=== PATIENT | female | born 1985 | race Caucasian/White ===

== ENCOUNTER → 2020-03-09 11:10 | Outpatient (BNVA) | payer OTHER, SELFPAY | PROVIDERS: Family Provider Nurse Practitioner Family; Visit Provider Obstetrics & Gynecology | DX: Z32.01 Encounter for pregnancy test, result positive (principal) | CPT/HCPCS: 81025 ==

== ENCOUNTER → 2020-03-10 13:15 | Outpatient (BNVA) | payer OTHER, SELFPAY | PROVIDERS: Family Provider Nurse Practitioner Family; Visit Provider Obstetrics & Gynecology | DX: O26.859 Spotting complicating pregnancy, unspecified trimester (principal) | CPT/HCPCS: 84702 ==

== ENCOUNTER → 2020-03-20 10:20 | Outpatient (BNVA) | payer OTHER, SELFPAY | PROVIDERS: Family Provider Nurse Practitioner Family; Visit Provider Obstetrics & Gynecology | DX: O20.0 Threatened abortion (principal) | CPT/HCPCS: 76817 ==

== ENCOUNTER → 2020-04-10 14:06 | Outpatient (BNVA) | payer OTHER, SELFPAY | PROVIDERS: Family Provider Nurse Practitioner Family; Visit Provider Obstetrics & Gynecology | DX: Z34.80 Encounter for supervision of other normal pregnancy, unspecified trimester | CPT/HCPCS: 80053; 80307; 84315; 85027; 86592; 86762; 86803; 86850; 86900; 87340; 87806 ==

== ENCOUNTER → 2020-04-24 10:16 | Outpatient (BNVA) | payer OTHER, SELFPAY | PROVIDERS: Family Provider Nurse Practitioner Family; Visit Provider Obstetrics & Gynecology | DX: Z34.81 Encounter for supervision of other normal pregnancy, first trimester (principal) | CPT/HCPCS: 84315; 87491; 87591; 88175 ==

== ENCOUNTER → 2020-05-18 13:19 | Outpatient (BNVA) | payer OTHER, BC, SELFPAY | PROVIDERS: Family Provider Nurse Practitioner Family; Visit Provider Obstetrics & Gynecology | DX: R30.0 Dysuria (principal) | CPT/HCPCS: 80053; 81000; 87077; 87086; 87184 ==

== ENCOUNTER → 2020-07-01 13:06 | Outpatient (BNVA) | payer OTHER, BC, SELFPAY | PROVIDERS: Family Provider Nurse Practitioner Family; Visit Provider Obstetrics & Gynecology | DX: Z34.92 Encounter for supervision of normal pregnancy, unspecified, second trimester (principal); Z3A.22 22 weeks gestation of pregnancy; O32.1XX0 Maternal care for breech presentation, not applicable or unspecified | CPT/HCPCS: 76805 ==

== ENCOUNTER → 2020-07-03 15:48 | Outpatient (BNVA) | payer OTHER, BC, SELFPAY | PROVIDERS: Family Provider Nurse Practitioner Family; Visit Provider Obstetrics & Gynecology | DX: O99.891 Other specified diseases and conditions complicating pregnancy (principal); R82.71 Bacteriuria; B37.3 Candidiasis of vulva and vagina | CPT/HCPCS: 84315; 87086 ==

== ENCOUNTER → 2020-08-14 14:48 | Outpatient (BNVA) | payer OTHER, BC, SELFPAY | PROVIDERS: Family Provider Nurse Practitioner Family; Visit Provider Obstetrics & Gynecology | DX: Z34.90 Encounter for supervision of normal pregnancy, unspecified, unspecified trimester (principal); Z34.82 Encounter for supervision of other normal pregnancy, second trimester; Z34.80 Encounter for supervision of other normal pregnancy, unspecified trimester | CPT/HCPCS: 82950; 84315; 85027 ==

== ENCOUNTER → 2020-08-21 08:25 | Outpatient (BNVA) | payer OTHER, BC, SELFPAY | PROVIDERS: Family Provider Nurse Practitioner Family; Visit Provider Obstetrics & Gynecology | DX: R73.09 Other abnormal glucose (principal) | CPT/HCPCS: 82951; 82952 ==

== ENCOUNTER → 2020-10-09 08:56 | Outpatient (BNVA) | payer OTHER, BC, SELFPAY | PROVIDERS: Family Provider Nurse Practitioner Family; Visit Provider Obstetrics & Gynecology | DX: Z34.80 Encounter for supervision of other normal pregnancy, unspecified trimester (principal); Z34.83 Encounter for supervision of other normal pregnancy, third trimester | CPT/HCPCS: 84315; 87081 ==

== ENCOUNTER 2020-10-24 15:32 | Outpatient (CLI) | payer OTHER, BC, SELFPAY ==
[2020-10-24 16:49] LABS: Urine Total Protein 24 Hour 11.9 mg/dL (0-150)
[2020-10-24 16:50] LABS: Total Protein 24 Hour Urine 199.3 mg/24HR (0-150); Total Volume, Urine 1675 mL
== END 2020-10-24 15:33 | disposition home or self-care (01) ==
LOC: LAB 15:34
PROVIDERS: Family Provider Nurse Practitioner Family; Visit Provider Obstetrics & Gynecology
DX: O16.3 Unspecified maternal hypertension, third trimester (principal)
CPT/HCPCS: 84156

== ENCOUNTER 2020-10-26 13:29 | Inpatient (IN) | payer OTHER, BC, SELFPAY ==
[2020-10-26] VITALS (44 sets, daily range): BP systolic 125–173; BP diastolic 66–120; PULSE 60–114; RESP 16–17; TEMP 36.3–36.4; BMI 31.6
[2020-10-26 14:37] LABS: Basophils % 0.2 %; Eosinophils # 0.4 10^3/uL (0.0-0.8); Hematocrit 37.3 % (37.0-47.0); Hemoglobin 12.2 g/dL (11.5-15.3); Lymphocytes # 1.6 10^3/uL (0.8-4.8); Lymphocytes % 9.1 %; Mean Corpuscular HGB Conc 32.7 g/dL (30.0-36.0); Mean Corpuscular Hemoglobin 29.2 pg (28.0-34.0); Mean Corpuscular Volume 89.2 fL (81-99); Mean Platelet Volume 12.7 fL (7.4-10.4); Monocytes # 0.8 10^3/uL (0.2-0.9); Monocytes % 4.3 %; Neutrophils # 14.75 10^3/uL (1.8-7.7); Neutrophils % 83.6 %; Nucleated Red Blood Cells % 0 %; Platelet Count 271 10^3/cmm (130-400); Red Blood Count 4.18 10^6/uL (4.1-5.3); Red Cell Distribution Width 15.2 % (12.1-15.1); White Blood Count 17.7 10^3/uL (4.0-10.0)
[2020-10-26 14:48] LABS: Blood Urine 3+ (Negative); Glucose Urine UA Norm (Normal); Ketones Urine 2+ (Negative); Protein Urine Neg (Negative); Urine Appearance Hazy (CLEAR); Urine Color Yellow (Yellow); pH Urine 5 (5-7)
[2020-10-26 14:49] LABS: Add Urine Microscopic? YES; Bilirubin Urine Neg (Negative); Leukocyte Esterase Urine 2+ (Negative); Nitrate Urine Negative (Negative); Urobilinogen Urine Norm (Negative)
[2020-10-26 14:53] LABS: Add Urine Culture? No; Bacteria Urine 3+ /hpf; Mucus Urine 1+ /hpf; Squamous Epithelial Cell Urine 15-25 /hpf (0-5); WBC Urine TOO NUMEROUS TO CNT /hpf (0-5)
[2020-10-26] MEDS: miSOPROStol 100 mcg tablet 25 MCG VAGINAL ×2 (15:00→20:56)
[2020-10-26 15:17] LABS: Alanine Aminotransferase 12 U/L (0-33); Albumin Level 3.2 g/dL (3.5-5.2); Alkaline Phosphatase 153 IU/L (35-105); Blood Urea Nitrogen 10 mg/dL (6-20); Calcium 8.9 mg/dL (8.5-10.5); Carbon Dioxide 18 mmol/L (22-29); Chloride 103 mmol/L (98-107); Globulin 3.4 g/dL (1.3-4.6); Glomerular Filtration Rate 141.2 mL/min (90-130); Glucose 116 mg/dL (65-115); Osmolality Calculated 284 mOsm/kg (285-295); Sodium 137 mmol/L (136-145); Total Bilirubin 0.2 mg/dL (0.15-1.2); Total Protein 6.6 g/dL (6.6-8.7)
[2020-10-26 15:20] LABS: Urine Creatinine 246 mg/dL (28-217)
[2020-10-26 15:30] LABS: Anion Gap 19.8 (5-19); Aspartate Amino Transferase 20 U/L (0-32); Potassium 3.8 mmol/L (3.5-5.1)
[2020-10-26 15:31] LABS: UPRO/UCREAT Ratio 0.15 mg/mg CR; Urine Protein Random 37 mg/dL
[2020-10-26] MEDS: ondansetron 2 mg/ML SDV 2 mL 4 MG IVP (16:59)
[2020-10-26] MEDS: labetalol 5 mg/mL SDV 20mL 20 MG IVP (19:00)
[2020-10-26] MEDS: fentaNYL 50 mcg/mL INJ 2mL IV (23:49)
[2020-10-27] VITALS (76 sets, daily range): BP systolic 94–185; BP diastolic 61–115; PULSE 66–96; RESP 16–18; TEMP 36.3–37
[2020-10-27] MEDS: fentaNYL 50 mcg/mL INJ 2mL IV (01:30)
[2020-10-27] MEDS: ondansetron 2 mg/ML SDV 2 mL 4 MG IVP (02:21)
[2020-10-27] MEDS: lactated ringers 1,000 ML 999 ML IV ×2 (03:32→04:37)
[2020-10-27] MEDS: labetalol 5 mg/mL SDV 20mL 40 MG IVP (03:44)
--- NOTE | 2020-10-27 05:05 | ANES.PREANE2 ---
Pre-Anesthetic Assessment Pre-Anesthetic Assessment: Height/Weight: Height 1.75 m Weight 97.069 kg Temp Pulse Resp BP 97.5 F L 72 16 135/86 10/26/20 21:04 10/27/20 05:02 10/27/20 01:30 10/27/20 05:02 Preop Diagnosis: labor pain Proposed Procedure: epidural Familial anesthetic complications: none Was Beta Madhuri taken within 24 hours: Yes Social: Social History: No alcohol and No tobacco Exam: Pre-Anes Outpt Exam: alert, oriented x 3, clear to auscultation bilaterally and regular rate & rhythm Airway: Submandibular: WNL Cervical ROM: WNL MP: 2 Dentition: Full Pulmonary: Pulmonary: None reported CV/HEM: CV/HEM: Anemia and HTN : : None reported Hepatic: Hepatic: None reported GI: GI: GERD Metabolic: Metabolic: None reported Musc/skel: Musc/skel: None reported Neuropsych: Neuropsych: None reported Anesthetic Plan: ASA status: 2 Anesthesia: Regional (specify below) Risk of > 500 ml blood loss (7ml/kg in children): No Meds/Allergies Current Medications: Current Medications Generic Name Dose Route Start Last Admin Trade Name Freq PRN Reason Stop Dose Admin Fentanyl 25 - 100 mcg 10/26/20 23:31 10/27/20 01:30 Fentanyl 50 Mcg/ Ml Inj 2ml IV 50 mcg Q1H PRN Administration SEVERE PAIN Labetalol HCl 40 mg 10/26/20 14:00 10/27/20 03:44 Labetalol 5 Mg/M l Sdv 20ml IVP 40 mg PRN PRN Administration HYPERTENSION Protocol Labetalol HCl 20 mg 10/26/20 14:00 10/26/20 19:00 Labetalol 5 Mg/M l Sdv 20ml IVP 20 mg PRN PRN Administration HYPERTENSION Protocol Ondansetron HCl 4 mg 10/26/20 14:00 10/27/20 02:21 Ondansetron 2 Mg /Ml Sdv 2 Ml IVP 4 mg Q4H PRN Administration NAUSEA AND VOMITI NG PFSH Anesthesia PFSH: Medical History (Updated 10/26/20 @ 20:53 by Brayden Huffman MD) Low grade squamous intraepith lesion on cytologic smear cervix (lgsil) Surgical History No pertinent past surgical history Family History Grandmother Family history of thyroid problem Hypertension Stroke Grandfather Family history of thyroid problem Hypertension Hyperlipidemia Mother Hypertension Social History (Updated 10/26/20 @ 20:51 by Brayden Huffman MD) Smoking and tobacco status: never smoked Alcohol intake: current Alcohol intake frequency: few times a month Substance/Drug Use: never Female Reproductive History: : 2 Data Anesthesia CBC & Chem 7: 10/26/20 14:00 10/26/20 14:00 Other Labs: Laboratory Results - last 48 hr 10/26/20 10/26/20 10/26/20 14:00 14:00 14:18 WBC 17.7 H RBC 4.18 Hgb 12.2 Hct 37.3 MCV 89.2 MCH 29.2 MCHC 32.7 RDW 15.2 H Plt Count 271 MPV 12.7 H Neut % (Auto) 83.6 Lymph % (Auto) 9.1 [place] % (Auto) 4.3 Eos % (Auto) 2.0 Baso % (Auto) 0.2 Neut # (Auto) 14.75 H Lymph # (Auto) 1.6 [place] # (Auto) 0.8 Eos # (Auto) 0.4 Baso # (Auto) 0.0 Nucleated RBC % (auto) 0 Nucleated RBCs # 0.0 Sodium 137 Potassium 3.8 Chloride 103 Carbon Dioxide 18 L Anion Gap 19.8 H BUN 10 Creatinine 0.5 GFR Calculation 141.2 H Glucose 116 H Calculated Osmolality 284 L Uric Acid 5.0 Calcium 8.9 Total Bilirubin 0.2 AST 20 ALT 12 Alkaline Phosphatase 153 H Total Protein 6.6 Albumin 3.2 L Globulin 3.4 Urine Color Yellow Urine Appearance Hazy A Urine pH 5 Ur Specific [place] 1.030 Urine Protein Neg Urine Glucose (UA) Norm Urine Ketones 2+ H Urine Blood 3+ H Urine Nitrate Negative Urine Bilirubin Neg Urine Urobilinogen Norm Ur Leukocyte Esterase 2+ H Urine RBC 5-10 H Urine WBC Too numerous to cnt H Ur Squamous Epith Cells 15-25 H Amorphous Sediment Not Reportable Urine Bacteria 3+ H Urine Mucus 1+ U Random Total Protein Urine Creatinine Protein/Creatinin Ratio 10/26/20 14:18 WBC RBC Hgb Hct MCV MCH MCHC RDW Plt Count MPV Neut % (Auto) Lymph % (Auto) [place] % (Auto) Eos % (Auto) Baso % (Auto) Neut # (Auto) Lymph # (Auto) [place] # (Auto) Eos # (Auto) Baso # (Auto) Nucleated RBC % (auto) Nucleated RBCs # Sodium Potassium Chloride Carbon Dioxide Anion Gap BUN Creatinine GFR Calculation Glucose Calculated Osmolality Uric Acid Calcium Total Bilirubin AST ALT Alkaline Phosphatase Total Protein Albumin Globulin Urine Color Urine Appearance Urine pH Ur Specific [place] Urine Protein Urine Glucose (UA) Urine Ketones Urine Blood Urine Nitrate Urine Bilirubin Urine Urobilinogen Ur Leukocyte Esterase Urine RBC Urine WBC Ur Squamous Epith Cells Amorphous Sediment Urine Bacteria Urine Mucus U Random Total Protein 37 Urine Creatinine 246 H Protein/Creatinin Ratio 0.15 Cardiac Studies: No Data to Display
--- NOTE | 2020-10-27 05:07 | P.ANES_ITS ---
Anesthesia Procedures Procedure/Date: 10/27/20 epidural Procedure Narrative: epidural complete, bolus given, epidural pump initiated with PEDIATRIC SPEECH LANGUAGE PATHOLOGIST education given, vitals taken during procedure using OBIX system and satisfactory throughout, patient admits to decrease pain, report of procedure to OB RN Epidural: Time Out Performed: Yes Consents Signed: Procedure Consent Consent: requested by attending/covering physician, from patient, risks and benefits reviewed and patient agrees to proceed Lumbar Level: L3-L4 Epidural position: sitting Epidural procedure: sterile prep of area, 1% lidocaine to numb the area (3 mL), 18 g needle, negative for paresthesia passed, neg for paresthesia, test dose given, 1.5% xylocaine 1:200k epi (5 mL), 0.2% Ropivacaine bolus ml (5 mL), placed PCEA, no systemic response, sterile dressing applied, L.U.D. no apparent complications and 0.2% Ropiavacaine @ mls/hr (13 mL/hr)
--- NOTE | 2020-10-27 07:30 | P.PCNOB_ITS ---
Delivery Note: Date of delivery: October 27, 2020 Pre-delivery diagnoses: Term Gestational hypertension Post-delivery diagnoses: Term delivered Op report anesthesia: Epidural Delivering Physician: Angelo Kirkpatrick MD Estimated blood loss (mL): 300 Delivery: The patient was noted to be complete and pushing, so was placed in the dorsal lithotomy position, prepped and draped in the usual sterile fashion for a vaginal delivery. Pt. Noted to have epidural anesthesia. At 0709 the patient delivered a viable female infant weighing 8 pounds 12 ounces with scores of 8 and 9 at one and five minutes, respectively. The vertex was delivered spontaneously over an intact perineum. The patient was asked to push and the head delivered spontaneously in the GERALDINE position, over an intact perineum. A nuchal cord was checked and 1 noted, and the relieved around head as necessary. The anterior shoulder delivered easily and the posterior shoulder followed. The remainder of the was easily delivered and the oropharynx and nasopharynx was bulb suctioned. The infant was noted to have spontaneous cry and spontaneous movement of all four extremities. The cord was clamped x 2 and cut and noted to have 2 arteries and one vein. The was passed to the mother's abdomen where nursing personnel were in attendance. The placenta delivered intact manual extraction cord velamentous insertion noted and the uterus was explored. 20 units of Pitocin was placed in the IV bag to firm the uterus. Examination of the cervix and vaginal vault did not reveal any lacerations. A vaginal pack was then placed. Examination of the perineum showed no laceration. The vaginal pack was then removed. The patient tolerated this procedure well, and recovered in L&D with her in their LDR room. All sponge and needle counts were correct. A&P Assessment and plan (1) Gestational hypertension: Status: Resolved Qualifiers: Trimester: third trimester Qualified Code(s): O13.3 - Gestational [-induced] hypertension without significant proteinuria, third trimester (2) Term delivered: Status: Resolved Coding Level of Care Code Acute It Field Technician for Chg Fwd Diagnoses Gestational hypertension O13.3 Trimester: third trimester Term delivered O80
[2020-10-27] MEDS: ibuprofen 800 mg tablet PO ×3 (10:10→20:04)
[2020-10-27] MEDS: docusate sodium 100 mg Capsule PO ×2 (10:10→17:32)
[2020-10-27] MEDS: prenatal vitamin Capsule 1 CAP PO (10:10)
--- NOTE | 2020-10-27 11:36 | PC.NURSE ---
pt up to bathroom without difficulty. charis care performed. pad/underwear and gown changed. complete linen change. pt up in bathroom for hygiene. discussed proud parent pack and certificate info. fresh ice water given. encouraged mom to wake baby for feeding in the next half hour. instructed to call for assistance one more time getting out of bed.
[2020-10-27] MEDS: oxytocin 30 UNIT/500 ML BAG 600 UNIT IV (12:24)
[2020-10-27] MEDS: acetaminophen 325 mg Tablet 650 MG PO (13:17)
[2020-10-27 14:02] LABS: Coronavirus Test Green County Not Detected
[2020-10-27] MEDS: HYDROcodone-acetaminophen 5-325 mg Tablet PO ×2 (14:34→21:17)
[2020-10-27 19:52] LABS: Hematocrit 33.6 % (37.0-47.0); Hemoglobin 10.9 g/dL (11.5-15.3); Mean Corpuscular HGB Conc 32.4 g/dL (30.0-36.0); Mean Corpuscular Hemoglobin 29.3 pg (28.0-34.0); Mean Corpuscular Volume 90.3 fL (81-99); Platelet Count 237 10^3/cmm (130-400); Red Blood Count 3.72 10^6/uL (4.1-5.3); Red Cell Distribution Width 15.5 % (12.1-15.1); White Blood Count 19.4 10^3/uL (4.0-10.0)
[2020-10-28] VITALS (25 sets, daily range): BP systolic 127–182; BP diastolic 65–105; PULSE 64–86; RESP 16–17; TEMP 36.2–37.4
[2020-10-28] MEDS: HYDROcodone-acetaminophen 5-325 mg Tablet PO ×2 (03:11→20:00)
[2020-10-28] MEDS: docusate sodium 100 mg Capsule PO (09:08)
[2020-10-28] MEDS: ibuprofen 800 mg tablet PO ×3 (09:08→20:00)
[2020-10-28] MEDS: prenatal vitamin Capsule 1 CAP PO (09:08)
--- NOTE | 2020-10-28 19:00 | PC.NURSE ---
Patient visibly agitiated and anxious, pacing in room. Updated on physician delay in surgery and plan for discharge.
[2020-10-28] MEDS: labetalol 5 mg/mL SDV 20mL 20 MG IVP (20:11)
--- NOTE | 2020-10-28 20:35 | P.DS_ITS ---
Discharge Providers MANAGER SOUND Date of Admission: 10/26/20 13:29 Date of Discharge: 11/13/20 Attending Provider at Admission: Brayden Huffman MD Attending Provider at Discharge: Brayden Huffman MD Diagnoses at Discharge Discharge Diagnosis (1) Gestational hypertension: Status: Resolved Qualifiers: Trimester: third trimester Qualified Code(s): O13.3 - Gestational [-induced] hypertension without significant proteinuria, third trimester (2) Term delivered: Status: Resolved Reason for Visit Reason for Visit: Induction Hospital Course Hospital Course Mrs. Vasques 35 year old, 2, Para 1-0-0-1 with LMP of 01/31/2020 and an RUBEN of 11/06/2020 based on LMP gestational age at 38 weeks 4 days admitted to labor and delivery due to gestational hypertension. She had a slow initial progress of labor. Progressed to have a spontaneous vaginal delivery without complication. she had developed severe hypertension and magnesium sulfate for seizure prophylaxis was initiated maintained for 24 hours. He is afebrile and hemodynamically stable. Tolerating diet well. Ambulating without difficulty. Was instructed to follow-up at the clinic to monitor blood pr essure. Information Peripartum Data: Infant Delivery Method: Vaginal Physical Exam Narrative: EXAM NARRATIVE: GA; alert and oriented x 3 HEENT: normal Breasts: engorged Nipples - skin intact Lungs; clear to auscultation Heart: regular rhythm, no murmurs. Abd: Appropriately tender. BS+. Uterine fundus below umbilicus. No Fundal Tenderness. Perineum: normal lochia. Extremities: no edema, no cyanosis, no tenderness. Urinary Catheter Management^: Veloz: Cath Placed During This Visit: yes, but has since been removed by the nurse Reason for Continuing Indwelling Catheter: Perioperative Use in Selected Surgeries Urinary Catheter Date of Insertion: 10/27/20 Urinary Catheter Time of Insertion: 05:45 Date Urinary Catheter Removed: 10/27/20 Time Urinary Catheter Discontinued: 06:58 Discharge Data Data Completed and Pending: Pending at discharge Category Date Time Status Cytology [PTH] Ro utine Pth 10/27/20 10:49 Received Vitals: Last Vital Signs Temp 99.3 F 10/28/20 19:35 Pulse 78 10/28/20 20:33 Resp 16 10/28/20 15:37 BP 137/87 10/28/20 20:33 Discharge Plan Discharge Patient Disposition: Home Condition: Stable Prescriptions: New ibuprofen 800 mg tablet 800 mg PO TID PRN (Reason: pain) Qty: 60 RF: 0 acetaminophen 325 mg capsule 325 mg PO Q4H PRN (Reason: fever or pain) Qty: 60 RF: 0 Continued loratadine [Claritin] 10 mg tablet 10 mg PO DAILY PRNRF: 0 prenat.vits,garfield,[id number] Tablet 1 tab PO DAILY RF: 0 hydrocortisone 2.5 % cream 1 applic TOPICAL BID PRNRF: 0 ketoconazole 2 % cream 1 applic TOPICAL DAILY PRNRF: 0 docusate sodium [Colace] 100 mg capsule 200 mg PO DAILY RF: 0 No Action labetalol 100 mg tablet 100 mg PO BID Qty: 60 RF: 0 Discharge Orders: Discharge Order (Routine); Ordered 10/28/20 Ordered By: Angelo Kirkpatrick Referrals: Angelo Kirkpatrick MD [Physician] - 2 weeks Brayden Huffman MD [Physician] - 12/07/20 10:15 am (* Your follow up appointment is on 12/07/2020 at 10:15am. ) Discharge Diet: Usual diet Discharge Activity: Increase activity as tolerated Patient Instructions: Pre-eclampsia and Eclampsia (DC), Bleeding (DC), OB Discharge Report, OB Anesthesia Instructions, OB Food/Drug Interaction Guide, OB Home Care, OB Proud Parent Packet, OB Vaginal Deliveries - [facility] Activity Restrictions/Additional Instructions: 1. Please call [facility] on next working day to make your post appointment in [2] weeks to monitor her blood pressure. 2. Please stay home until you come back to the clinic on first post-operative check up. 3. Please follow instructions on your medications CAREFULLY. 4. If you have abdominal incision, do not cover it unless dressing is necessary because of drainage. OK to shower, but avoid bath. Leave steri-strips until they fall off. If they are still on one week after surgery, you may remove them. 5. If you had vaginal surgery or vaginal repair, Dr. Kirkpatrick may instruct you to take SITZ bath. 6. Yellow, blood tinged odorous vaginal discharge is usually normal after hysterectomy or vaginal surgeries. 7. No sexual intercourse, tampons, or douches until you are completely released from the post-operative care. 8. Avoid constipation by eating right and maybe using some Metamucil or Milk of Magnesia. 9. All prescription refills are given during the working hours. Please do no wait till it runs out. Call the clinic at [phone] before your medication runs out. The clinic will get in touch with your doctor to prescribe medications if necessary. 10. Please remain within 40 mile radius from our hospital because emergencies do happen now and then during the post-operative period. 11. If you have stairs at home, take one step at a time slowly and minimize the number of trips. It helps to stay in one floor for the next few days. No lifting except what you can lift by one hand until you are released from the post-operative care. 12. Driving is discouraged until you are well healed. It may be 3-4 weeks before you feel strong enough to drive. You should be able to turn and look through the rear window without pain and you should be able to push the brake pedal very hard without pain before you drive. No fast rules, but SAFETY should be your primary concern. DO NOT drive if you are on sedating medications such as narcotics. 13. Call the clinic (during working hours) to make urgent appointment or go to the Emergency room, if any of the following occurs: i. Vaginal bleeding becomes heavy, more than a period. ii. Incision becomes red and sore, or drains pus. iii. Your temperature is over 100.4 or you have chill. iv. IV site becomes red and swollen (a little ``knot?? is usually OK) v. Persistent nausea and vomiting vi. Persistent constipation or diarrhea vii. Rash or allergic reaction to medications. Discharge Attestations MANAGER SOUND Time Spent in Discharge Care*: greater than 30 min Coding Level of Care Code Acute Aqua Ammonia Operator for Chg Fwd Diagnoses Gestational hypertension O13.3 Trimester: third trimester Term delivered O80
[2020-10-28] MEDS: labetalol 5 mg/mL SDV 20mL 40 MG IVP (21:35)
[2020-10-28] MEDS: magnesium sulfate premix 4 GM/100 ML PREMIX IV (21:41)
[2020-10-28] MEDS: dextrose 5%-lactated ringers 1,000 ML 75 ML IV (21:41)
[2020-10-28] MEDS: magnesium sulfate premix 20 GM/500 ML BAG IV (22:01)
[2020-10-28] MEDS: hyDROXYzine 25 mg Capsule 50 MG PO (22:32)
[2020-10-29] VITALS (33 sets, daily range): BP systolic 114–160; BP diastolic 70–99; PULSE 71–106; RESP 16; TEMP 36.2–37.3
[2020-10-29 00:44] LABS: Magnesium Level (OB Only) 4.2 mg/dL (5.0-7.5)
[2020-10-29] MEDS: HYDROcodone-acetaminophen 5-325 mg Tablet PO (03:04)
--- NOTE | 2020-10-29 04:41 | PC.NURSE ---
Took oral temperature because patient had a cool rag on her forehead.
[2020-10-29 06:58] LABS: Magnesium Level (OB Only) 5.7 mg/dL (5.0-7.5)
[2020-10-29] MEDS: magnesium sulfate premix 20 GM/500 ML BAG IV ×2 (07:19→17:08)
[2020-10-29] MEDS: prenatal vitamin Capsule 1 CAP PO (09:14)
[2020-10-29] MEDS: ibuprofen 800 mg tablet PO ×3 (09:14→20:21)
[2020-10-29] MEDS: docusate sodium 100 mg Capsule PO ×2 (09:14→17:10)
[2020-10-29] MEDS: dextrose 5%-lactated ringers 1,000 ML 75 ML IV (10:13)
[2020-10-29 12:52] LABS: Magnesium Level (OB Only) 5.9 mg/dL (5.0-7.5)
[2020-10-29] MEDS: hydrocortisone 1% cream 28 gm 1 APPLIC TOPICAL (17:11)
[2020-10-29 18:22] LABS: Magnesium Level (OB Only) 6.3 mg/dL (5.0-7.5)
== END 2020-10-29 23:05 | disposition home or self-care (01) | DRG 807 ==
LOC: OBGYN 10-27 07:49 → OPOB 10-27 08:04
PROVIDERS: Obstetrics & Gynecology; Admitting Provider Obstetrics & Gynecology; Visit Provider Obstetrics & Gynecology
DX: O13.4 Gestational [pregnancy-induced] hypertension without significant proteinuria, complicating childbirth (principal); Z37.0 Single live birth; Z3A.38 38 weeks gestation of pregnancy; O69.2XX0 Labor and delivery complicated by other cord entanglement, with compression, not applicable or unspecified; O75.89 Other specified complications of labor and delivery; R87.629 Unspecified abnormal cytological findings in specimens from vagina
CPT/HCPCS: 36415; 51702; 59409; 80053; 81001; 82570; 83735; 84156; 84315; 84550; 85025; 85027; 87635; 88307; 99211; J2405; J2795; J3010; J3475; J3490

== ENCOUNTER → 2020-12-17 15:15 | Outpatient (BNVA) | payer OTHER, BC, SELFPAY | PROVIDERS: Visit Provider Obstetrics & Gynecology | DX: R87.612 Low grade squamous intraepithelial lesion on cytologic smear of cervix (LGSIL) (principal) | CPT/HCPCS: 88175 ==

== ENCOUNTER → 2022-02-17 13:55 | Outpatient (BNVA) | payer OTHER, BC, SELFPAY | PROVIDERS: Visit Provider Nurse Practitioner Women's Health | DX: R87.619 Unspecified abnormal cytological findings in specimens from cervix uteri (principal) | CPT/HCPCS: 88305; 88342 ==

== ENCOUNTER → 2022-04-12 13:16 | Day surgery (SDC) | payer OTHER, BC, SELFPAY ==
--- NOTE | 2022-04-12 11:57 | XR_ITS ---
WS: [id number] XR chest 1V portable [id number] REASON FOR EXAM: Post PICC insertion FINDINGS: A right arm PICC line has been placed the tip is within the superior vena cava at the level of the ca maira. The catheter is to be advanced 2 more centimeters which would put it in the superior vena cava just above the right atrium. Patient is rotated to the right which accounts for the prominence of the aortic arch in the appearanc e of the left hilar region. XR/XR chest 1V portable [id number] IMPRESSION: PICC line properly positioned and ready for use. No acute chest abnormality.
[2022-04-12 13:30] VITALS: BP 148/99; PULSE 88; RESP 18; TEMP 36.8; O2SAT 98
--- NOTE | 2022-04-12 13:30 | PC.NURSE ---
Pt to GI lab for PICC insertion. Double lumen PICC inserted into right basilic vein without difficulty. CXR confirms placement in distal SVC. Nurys at Onc Med notified and that dressing will need changed tomorrow. Pt has appointment 04/13/22 at Onc Med at 1330.
== END ==
PROVIDERS: Visit Provider Internal Medicine Medical Oncology
DX: Z45.2 Encounter for adjustment and management of vascular access device (principal)
CPT/HCPCS: 36569; 71045

== ENCOUNTER 2022-04-29 10:23 | Oncology outpatient (recurring) (ONCR) | payer OTHER, BC, SELFPAY ==
--- NOTE | 2022-04-11 14:40 | N.ONRAD NP_ITS ---
Radiation Oncology Consultation Patient Name: Chelsea Vasques Date of : 1985 Date of Service: 04/11/2022 Attending Physician: Wiley Hauser M.D. Chelsea Vasques was seen in consultation this afternoon at the request of Nikunj Gómez M.D. for consideration of definitive radiotherapy for the management of a recently diagnosed locally advanced cervical cancer. She was evaluated at the [facility] [place] in January for dyspareunia, vaginal discharge and bleeding. A colposcopy identified irregularity of the cervix. 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 She was referred to the [facility] in [place], [place]. An exam under anesthesia distal trachelectomy and debulking of cervical mass was performed by Cintia Hightower D.O. March 10, 2022. Intraoperative findings described an 8 cm x 8 cm exophytic cervical mass. There were no pelvic masses or rectovaginal nodularities. An MRI obtained on March 15, 2022 demonstrated a 1.3 cm soft tissue abnormality within the upper one third of the vagina and a 1.2 cm soft tissue nodularity in the left upper vagina. Borderline right iliac chain lymphadenopathy was reported. A PET scan (independently reviewed in [facility]) ordered on March 09, 2022 revealed hypermetabolic activity within the cervix (SUV 5.7), right adnexa (SUV 16.5), right fallopian tube (SUV 8.1), and left paracolic gutter possibly representing a left ovarian tumor implant (SUV 8.9). A prominent right external iliac lymph node measuring 1.2 cm was reported without hypermetabolism. There was no radiographic evidence for metastatic disease. The patient was referred for pelvic radiotherapy. I reviewed the FIGO staging and specifically the patient's FIGO stage IIIC1. I also discussed The National Comprehensive Cancer Network Guidelines recommending pelvic external beam radiotherapy and brachytherapy with concurrent systemic therapy established by the classic trials of the GOG and the RTOG that randomized women with locally advanced cervical cancer to three concurrent chemotherapy regimens and pelvic radiotherapy (GOG) and the RTOG study that randomized patients to extended field radiotherapy or pelvic radiation and chemotherapy. The results of these studies revealed improvement in overall survival and progression free survival in the cisplatin chemotherapy arms. I would endorse pelvic radiotherapy followed by [id number] vaginal brachytherapy. A computed tomographic radiotherapy planning scan with contrast in the treatment position will be acquired to identify the clinical target volumes. The potential toxicities of pelvic radiation therapy were reviewed. The patient has verbalized understanding would like to proceed as recommended. The patient's medical treatment plan was discussed with Nikunj Gómez M.D. Signed by: Dr. Wiley Hauser 04/11/2022 2:41:58 PM
[2022-04-11 15:13] LABS: Basophils # 0.1 10^3/uL (0.0-0.1); Basophils % 0.5 %; Eosinophils # 0.2 10^3/uL (0.0-0.8); Eosinophils % 1.4 %; Hematocrit 40.1 % (37.0-47.0); Hemoglobin 12.3 g/dL (11.5-15.3); Lymphocytes # 1.8 10^3/uL (0.8-4.8); Lymphocytes % 11.5 %; Mean Corpuscular HGB Conc 30.7 g/dL (30.0-36.0); Mean Corpuscular Hemoglobin 26.1 pg (28.0-34.0); Mean Platelet Volume 11.2 fL (7.4-10.4); Monocytes % 6.1 %; Neutrophils # 12.73 10^3/uL (1.8-7.7); Neutrophils % 80.1 %; Nucleated Red Blood Cells % 0 %; Platelet Count 432 10^3/cmm (130-400); Red Blood Count 4.72 10^6/uL (4.1-5.3); Red Cell Distribution Width 13.5 % (12.1-15.1); White Blood Count 15.9 10^3/uL (4.0-10.0)
[2022-04-11 15:27] LABS: INR 1.11 (0.8-1.2)
[2022-04-11 15:29] LABS: Alanine Aminotransferase 7 U/L (0-33); Alkaline Phosphatase 68 U/L (35-105); Anion Gap 12.3 (5-19); Aspartate Amino Transferase 10 U/L (0-32); Blood Urea Nitrogen 13 mg/dL (6-20); Calcium 9.2 mg/dL (8.5-10.5); Carbon Dioxide 28 mmol/L (22-29); Chloride 100 mmol/L (98-107); Globulin 3.3 g/dL (1.3-4.6); Glomerular Filtration Rate 81.6 mL/min (90-130); Glucose 106 mg/dL (65-115); Osmolality Calculated 285 mOsm/kg (285-295); Potassium 3.3 mmol/L (3.5-5.1); Sodium 137 mmol/L (136-145); Total Bilirubin 0.2 mg/dL (0.15-1.2); Total Protein 7.3 g/dL (6.6-8.7)
--- NOTE | 2022-04-13 | CT_ITS ---
Radiation Therapy Planning CT images; total exam DLP: 1239.73 mGy-cm MTDD
--- NOTE | 2022-04-13 16:14 | PC.NURSE ---
Sterile PICC line dressing change done on this patient. Patient tolerated procedure without any problems. Patient then ambulated to Radiation Oncology to have a CT Scan.
[2022-04-18 09:53] LABS: Basophils % 0.3 %; Eosinophils % 0.2 %; Hematocrit 34.5 % (37.0-47.0); Hemoglobin 10.9 g/dL (11.5-15.3); Lymphocytes # 1.3 10^3/uL (0.8-4.8); Lymphocytes % 11.1 %; Mean Corpuscular HGB Conc 31.6 g/dL (30.0-36.0); Mean Corpuscular Volume 82.3 fl (81-99); Mean Platelet Volume 11.5 fL (7.4-10.4); Monocytes # 0.6 10^3/uL (0.2-0.9); Neutrophils # 9.75 10^3/uL (1.8-7.7); Neutrophils % 83.1 %; Nucleated Red Blood Cells % 0 %; Platelet Count 361 10^3/cmm (130-400); Red Blood Count 4.19 10^6/uL (4.1-5.3); Red Cell Distribution Width 13.6 % (12.1-15.1); White Blood Count 11.7 10^3/uL (4.0-10.0)
[2022-04-18 10:18] LABS: Alanine Aminotransferase 8 U/L (0-33); Albumin Level 3.7 g/dL (3.5-5.2); Alkaline Phosphatase 60 U/L (35-105); Aspartate Amino Transferase 16 U/L (0-32); Blood Urea Nitrogen 14 mg/dL (6-20); Calcium 8.7 mg/dL (8.5-10.5); Carbon Dioxide 24 mmol/L (22-29); Chloride 104 mmol/L (98-107); Creatinine Clr Calc Pharmacy 150.3755; Glomerular Filtration Rate 113.8 mL/min (90-130); Glucose 138 mg/dL (65-115); Osmolality Calculated 293 mOsm/kg (285-295); Sodium 140 mmol/L (136-145); Total Bilirubin 0.2 mg/dL (0.15-1.2); Total Protein 6.7 g/dL (6.6-8.7)
[2022-04-18 10:21] LABS: Anion Gap 15.4 (5-19); Potassium 3.4 mmol/L (3.5-5.1)
[2022-04-18] MEDS: OLANZapine 5 mg TABLET PO (11:45)
[2022-04-18] MEDS: palonosetron 0.25 mg/5 mL SDV IVP (11:52)
[2022-04-18] MEDS: famotidine 20 mg/2 mL INJ IVP (11:54)
[2022-04-18] MEDS: diphenhydrAMINE 50 mg/mL SDV 1mL 25 MG IVP (11:56)
[2022-04-18] MEDS: fosaprepitant 150 MG in sodium chloride 0.9% 150 ML 300 MG IV (12:10)
[2022-04-18 13:54] LABS: Ferritin 20 ng/mL (15-150); Iron 23 ug/dL (37-145); Total Iron Binding Capacity 326 mcg/dl; Unsaturated Iron Binding 303 ug/dL (112-347)
[2022-04-18] MEDS: potassium chloride 20 MEQ in sodium chloride 0.9% 500 ML 500 MEQ IV (14:11)
[2022-04-18] MEDS: FUROsemide 10 mg/mL SDV 2mL 20 MG IVP (15:20)
[2022-04-18 15:50] VITALS: BP 129/91; PULSE 90; RESP 16; TEMP 36.7; O2SAT 98
[2022-04-25 08:18] LABS: Basophils % 0.5 %; Eosinophils # 0.2 10^3/uL (0.0-0.8); Eosinophils % 1.9 %; Hematocrit 35.6 % (37.0-47.0); Hemoglobin 10.9 g/dL (11.5-15.3); Lymphocytes # 0.7 10^3/uL (0.8-4.8); Lymphocytes % 8.3 %; Mean Corpuscular HGB Conc 30.6 g/dL (30.0-36.0); Mean Corpuscular Volume 84.8 fl (81-99); Mean Platelet Volume 10.8 fL (7.4-10.4); Monocytes # 0.5 10^3/uL (0.2-0.9); Monocytes % 5.7 %; Neutrophils # 6.96 10^3/uL (1.8-7.7); Neutrophils % 82.6 %; Nucleated Red Blood Cells % 0 %; Platelet Count 405 10^3/cmm (130-400); Red Cell Distribution Width 13.9 % (12.1-15.1); White Blood Count 8.4 10^3/uL (4.0-10.0)
[2022-04-25 08:49] LABS: Alanine Aminotransferase 10 U/L (0-33); Albumin Level 4.1 g/dL (3.5-5.2); Alkaline Phosphatase 71 U/L (35-105); Anion Gap 16.4 (5-19); Aspartate Amino Transferase 11 U/L (0-32); Blood Urea Nitrogen 17 mg/dL (6-20); Carbon Dioxide 22 mmol/L (22-29); Chloride 105 mmol/L (98-107); Creatinine Clr Calc Pharmacy 150.2821; Glomerular Filtration Rate 113.8 mL/min (90-130); Glucose 122 mg/dL (65-115); Osmolality Calculated 291 mOsm/kg (285-295); Potassium 4.4 mmol/L (3.5-5.1); Sodium 139 mmol/L (136-145); Total Bilirubin 0.2 mg/dL (0.15-1.2); Total Protein 7.1 g/dL (6.6-8.7)
[2022-04-25] MEDS: OLANZapine 5 mg TABLET PO (11:02)
[2022-04-25] MEDS: palonosetron 0.25 mg/5 mL SDV IVP (11:04)
[2022-04-25] MEDS: famotidine 20 mg/2 mL INJ IVP (11:06)
[2022-04-25] MEDS: diphenhydrAMINE 50 mg/mL SDV 1mL 25 MG IVP (11:08)
[2022-04-25] MEDS: fosaprepitant 150 MG in sodium chloride 0.9% 150 ML 300 MG IV (11:11)
[2022-04-25] MEDS: sodium chloride 0.9% 1,000 ML 25 ML IV (12:30)
[2022-04-25] MEDS: FUROsemide 10 mg/mL SDV 2mL 20 MG IVP (13:20)
[2022-04-25] MEDS: potassium chloride 20 MEQ in sodium chloride 0.9% 500 ML 500 MEQ IV (13:25)
[2022-04-25 14:33] VITALS: BP 127/83; PULSE 92; RESP 16; TEMP 36.3; O2SAT 99
[2022-04-27 10:57] VITALS: BP 131/94; PULSE 79; RESP 16; TEMP 36.8; O2SAT 100
[2022-04-27 11:30] VITALS: BP 131/94; PULSE 79; RESP 18; TEMP 36.8; O2SAT 100
[2022-04-27] MEDS: sodium chloride 0.9% 1,000 ML 999 ML IV (11:40)
[2022-04-27] MEDS: palonosetron 0.25 MG in sodium chloride 0.9% 50 ML 187 MG IV (11:46)
[2022-04-27] MEDS: famotidine 20 mg/2 mL INJ IVP (12:05)
[2022-04-27] MEDS: OLANZapine 5 mg TABLET PO (12:16)
== END 2022-04-29 23:59 | disposition home or self-care (01) ==
PROVIDERS: Nurse Practitioner; Visit Provider Radiology Radiation Oncology
DX: Z51.0 Encounter for antineoplastic radiation therapy (principal); C53.1 Malignant neoplasm of exocervix
CPT/HCPCS: 77300; 77301; 77334; 77336; 77338; 77386; 77470; 80053; 82728; 83540; 83550; 85025; 85610; 96365; 96366; 96367; 96368; 96375; 96413; 99205; J1100; J1200; J1453; J1940; J2469; J3475; J3480; J3490; J7030; J7040; J9060

== ENCOUNTER 2022-05-01 13:43 | Emergency (ER) | payer OTHER, BC, SELFPAY ==
[2022-05-01 13:50] VITALS: BP 128/90; PULSE 101; RESP 16; TEMP 37.3; O2SAT 98; BMI 26.9
--- NOTE | 2022-05-01 13:57 | ED_ITS ---
HPI - General Adult General: Chief complaint: General Medical Stated complaint: Right Pick line is bleeding, cancer pt. Time Seen by Provider: 05/01/22 13:54 Source: patient Mode of arrival: ambulatory Limitations: no limitations History of Present Illness: 36-year-old female who has a history of cervical cancer she is currently on chemo she does have a PICC line to her right upper arm she had for 2 weeks states she is at the pumpkin patch has been moving a lot no some slight blood she does have the dressing still in place was some slight bleeding no active bleeding at this time she denies any pain denies any worsening proving factors. Associated symptoms: Deny chest pain, dyspnea, headache(s), nausea, rash or vomiting Review of Systems Const: Denies: fever(s), chills, body aches or change in appetite Eyes: Denies: blurry vision or eye discomfort ENMT: Denies: throat pain or dental pain Card: Denies: chest pain Resp: Denies: dyspnea GI: Denies: abdominal pain, nausea, vomiting or diarrhea : Denies: dysuria Musc: Denies: neck pain or back pain Skin/Breast: Denies: rash Neuro: Denies: headache(s) Psych: Denies: depression Ronnie/Lymph: Denies: easy bruising All/Imm: Denies: urticaria PFSH ED PFSH: Medical History Cervical cancer Chronic anxiety Hypertension Surgical History History of cervical biopsy (02/17/22) History of cystoscopy (03/10/22) Exam of bladder and rectum, core of tumor and cut blood supply to cervical tumor @ [place], [place] Status post trachelectomy Distal trachelectomy with debulking of cervical mass Family History Grandmother Family history of thyroid problem Maternal Hypertension Maternal Lung disease Grandfather Family history of thyroid problem Maternal Hypertension Maternal Hyperlipidemia Maternal Mother Hypertension CAD (coronary artery disease) AFIB Denies family history of Colon cancer Ovarian cancer Diabetes Clotting disorder Heart disease Psychiatric illness Chronic kidney disease (CKD) Breast cancer Suicide Anesthesia complication Bleeding disorder Cancer Uterine cancer Stroke Social History Smoking and tobacco status: never smoked Physical Exam Const: COMMON NORMALS: no acute distress, patient oriented x3 and healthy appearing HENMT: COMMON NORMALS: normocephalic and atraumatic HEAD & SCALP: normocephalic and atraumatic Eye: COMMON NORMALS: conjunctivae normal CONJUNCTIVA: Yes conjunctivae normal Neck/C-Spine: COMMON NORMALS: full ROM and supple Chest: COMMONS NORMALS: normal inspection of the chest Resp: COMMON NORMALS: normal respiratory effort Cardio: COMMON NORMALS: regular rate and No murmurs present (Cardio) RATE: regular rate GI: INSPECTION: Yes normal to inspection Extremity: COMMON NORMALS: full ROM Neuro: COMMON NORMALS: patient oriented x3, moves all extremities and no focal motor deficits Psych: COMMON NORMALS: mental status grossly normal, Normal thought process present and cooperative THOUGHT PROCESS: Normal thought process present Skin: NARRATIVE SKIN EXAM: PICC line in place to right upper arm slight bleeding at this time dressing is in place no signs of active bleeding at this time. Course Vital Signs: Vital signs: Vital Signs Temperature 99.1 F 05/01/22 13:50 Pulse Rate 101 H 05/01/22 13:50 Respiratory Rate 16 05/01/22 13:50 Blood Pressure 128/90 05/01/22 13:50 Pulse Oximetry 98 05/01/22 13:50 Oxygen Delivery Me thod 05/01/22 13:50 MDM - General Adult Medical Decision Making Patient presents here with some slight bleeding from her PICC line it since stopped did change dressing she no longer has any bleeding she is stable for discharge follow-up with her PCP. Discharge Plan Discharge Patient Disposition: Home Clinical Impression: Bleeding from PICC line Condition: Stable Prescriptions: No Action sertraline 25 mg tablet 25 mg PO DAILY buspirone 5 mg tablet 5 mg PO BID PRN (Reason: Anxiety) prochlorperazine maleate [Compazine] 10 mg tablet 10 mg PO Q6H PRN (Reason: nausea and vomiting) Qty: 30 5RF Rx Instructions: as needed for MILD nausea/vomiting lorazepam 0.5 mg tablet 0.5 mg PO TID PRN (Reason: nausea and vomiting) Qty: 30 1RF Rx Instructions: as needed for SEVERE nausea and vomiting or anxiety/insomnia metoprolol tartrate 25 mg tablet 12.5 mg PO BID ondansetron HCl 4 mg tablet 4 mg PO Q6H PRN (Reason: nausea and vomiting) Qty: 60 3RF Rx Instructions: 1-2 tablets every 6 hours as needed for mild to moderate nausea Discharge Orders: Discharge ED (Routine); Ordered 05/01/22 Ordered By: Bry Pennington Discharge Diet: Advance as tolerated Discharge Activity: Resume usual activity Patient Instructions: How to Care for Your PICC (Peripherally Inserted Central Catheter) (ED) Coding Level of Care Code ED Physician Gynecologist for Juan Raomn Fwd Exam Comprehensive
--- NOTE | 2022-05-01 14:28 | PC.NURSE ---
Dressing change under sterile technique to picc line, no active bleeding noted, blood around the insertion site already clotting,
== END 2022-05-01 14:33 | disposition home or self-care (01) ==
PROVIDERS: Emergency Provider Emergency Medicine; PCP Electrodiagnostic Medicine
DX: T82.838A Hemorrhage due to vascular prosthetic devices, implants and grafts, initial encounter (principal); I10 Essential (primary) hypertension; Z85.41 Personal history of malignant neoplasm of cervix uteri
CPT/HCPCS: 99282

== ENCOUNTER 2022-05-27 09:30 | Oncology outpatient (recurring) (ONCR) | payer OTHER, BC, SELFPAY ==
[2022-05-02 08:36] LABS: Basophils % 0.2 %; Eosinophils # 0.1 10^3/uL (0.0-0.8); Eosinophils % 0.8 %; Hematocrit 34.5 % (37.0-47.0); Hemoglobin 10.8 g/dL (11.5-15.3); Lymphocytes # 0.5 10^3/uL (0.8-4.8); Lymphocytes % 5.2 %; Mean Corpuscular HGB Conc 31.3 g/dL (30.0-36.0); Mean Corpuscular Hemoglobin 26.3 pg (28.0-34.0); Mean Corpuscular Volume 84.1 fl (81-99); Mean Platelet Volume 10.6 fL (7.4-10.4); Monocytes # 0.5 10^3/uL (0.2-0.9); Monocytes % 5.4 %; Neutrophils # 7.98 10^3/uL (1.8-7.7); Neutrophils % 87.6 %; Nucleated Red Blood Cells % 0 %; Platelet Count 222 10^3/cmm (130-400); Red Cell Distribution Width 14.6 % (12.1-15.1); White Blood Count 9.1 10^3/uL (4.0-10.0)
[2022-05-02 09:24] LABS: Alanine Aminotransferase 12 U/L (0-33); Alkaline Phosphatase 72 U/L (35-105); Anion Gap 16.1 (5-19); Aspartate Amino Transferase 11 U/L (0-32); Blood Urea Nitrogen 15 mg/dL (6-20); Calcium 8.8 mg/dL (8.5-10.5); Carbon Dioxide 22 mmol/L (22-29); Chloride 104 mmol/L (98-107); Creatinine Clr Calc Pharmacy 149.9069; Globulin 2.5 g/dL (1.3-4.6); Glomerular Filtration Rate 113.8 mL/min (90-130); Glucose 114 mg/dL (65-115); Osmolality Calculated 288 mOsm/kg (285-295); Potassium 4.1 mmol/L (3.5-5.1); Sodium 138 mmol/L (136-145); Total Bilirubin 0.2 mg/dL (0.15-1.2); Total Protein 6.5 g/dL (6.6-8.7)
[2022-05-02] MEDS: OLANZapine 5 mg TABLET PO (10:33)
[2022-05-02] MEDS: palonosetron 0.25 mg/5 mL SDV IVP (10:34)
[2022-05-02] MEDS: famotidine 20 mg/2 mL INJ IVP (10:36)
[2022-05-02] MEDS: diphenhydrAMINE 50 mg/mL SDV 1mL 25 MG IVP (10:38)
[2022-05-02] MEDS: fosaprepitant 150 MG in sodium chloride 0.9% 150 ML 300 MG IV (10:41)
--- NOTE | 2022-05-02 11:01 | ONCRAD TMN_ITS ---
Radiation Oncology Treatment Management Note Patient Name: Chelsea Vasques Date of : 1985 Date of Service: 05/02/2022 Attending Physician: Wiley Hauser M.D. 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 She was evaluated at the [facility] [place] in January for dyspareunia, vaginal discharge and bleeding. A colposcopy identified irregularity of the cervix. 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 She was referred to the [facility] in [place], [place]. An exam under anesthesia distal trachelectomy and debulking of cervical mass was performed by Cintia Hightower D.O. March 10, 2022. Intraoperative findings described an 8 cm x 8 cm exophytic cervical mass. There were no pelvic masses or rectovaginal nodularities. An MRI obtained on March 15, 2022 demonstrated a 1.3 cm soft tissue abnormality within the upper one third of the vagina and a 1.2 cm soft tissue nodularity in the left upper vagina. Borderline right iliac chain lymphadenopathy was reported. A PET scan ordered on March 09, 2022 revealed hypermetabolic activity within the cervix (SUV 5.7), right adnexa (SUV 16.5), right fallopian tube (SUV 8.1), and left para-colic gutter possibly representing a left ovarian tumor implant (SUV 8.9). A prominent right external iliac lymph node measuring 1.2 cm was reported without hypermetabolism. There was no radiographic evidence for metastatic disease. The patient has received 22 Gy of a prescribed 50 Baron with an intensity modulated radiotherapy plan utilizing a step and shoot treatment technique. HDR brachytherapy will be interposed with pelvic radiotherapy that is coordinated with [facility] in [place], [place]. She has been prescribed cisplatin (40 mg/m2) weekly during radiotherapy. Upon review of systems, she reported diarrhea. On physical examination, the patient weighed 181 lbs. Her temperature was 98.3 ???F and the blood pressure was 141/85 mmHg. Her pulse was 92 bpm and her respiratory rate was 16. There was erythema within the treatment [place]. Continue pelvic radiotherapy as prescribed. OTC anti-diarrheal was recommended. Signed by: Dr. Wiley Hauser 05/02/2022 11:00:13 AM
[2022-05-02] MEDS: potassium chloride 20 MEQ in sodium chloride 0.9% 500 ML 500 MEQ IV (12:58)
[2022-05-02] MEDS: FUROsemide 10 mg/mL SDV 2mL 20 MG IVP (14:01)
[2022-05-02 14:03] VITALS: BP 128/86; PULSE 79; RESP 16; TEMP 36.1; O2SAT 99
[2022-05-04 11:58] LABS: Glucose Urine UA Norm (Normal); Protein Urine 1+ (Negative); Specific Gravity, Urine 1.025 (1.005-1.030); Urine Appearance Hazy (CLEAR); Urine Color Yellow (Yellow); pH Urine 5 (5-7)
[2022-05-04 11:59] LABS: Add Urine Culture? Yes; Bacteria Urine 1+ /hpf; Bilirubin Urine 1+ (Negative); Blood Urine 2+ (Negative); Ketones Urine Negative (Negative); Leukocyte Esterase Urine 1+ (Negative); Mucus Urine 1+ /hpf; Nitrate Urine Negative (Negative); RBC Urine 0-4 /hpf (0-2); Urobilinogen Urine Norm (Negative); WBC Urine 15-25 /hpf (0-5)
[2022-05-09 08:46] LABS: Basophils % 0.1 %; Eosinophils % 0.4 %; Hematocrit 36.6 % (37.0-47.0); Hemoglobin 11.3 g/dL (11.5-15.3); Lymphocytes # 0.3 10^3/uL (0.8-4.8); Lymphocytes % 3.5 %; Mean Corpuscular HGB Conc 30.9 g/dL (30.0-36.0); Mean Corpuscular Volume 84.3 fl (81-99); Mean Platelet Volume 10.2 fL (7.4-10.4); Monocytes # 0.5 10^3/uL (0.2-0.9); Monocytes % 5.8 %; Neutrophils # 7.19 10^3/uL (1.8-7.7); Neutrophils % 89.5 %; Nucleated Red Blood Cells % 0 %; Platelet Count 184 10^3/cmm (130-400); Red Blood Count 4.34 10^6/uL (4.1-5.3); Red Cell Distribution Width 15.9 % (12.1-15.1)
[2022-05-09 09:10] LABS: Alanine Aminotransferase 11 U/L (0-33); Albumin Level 3.9 g/dL (3.5-5.2); Alkaline Phosphatase 70 U/L (35-105); Anion Gap 14.2 (5-19); Aspartate Amino Transferase 12 U/L (0-32); Blood Urea Nitrogen 10 mg/dL (6-20); Calcium 8.8 mg/dL (8.5-10.5); Carbon Dioxide 25 mmol/L (22-29); Chloride 103 mmol/L (98-107); Creatinine Clr Calc Pharmacy 149.9069; Globulin 2.9 g/dL (1.3-4.6); Glomerular Filtration Rate 113.8 mL/min (90-130); Glucose 158 mg/dL (65-115); Osmolality Calculated 288 mOsm/kg (285-295); Potassium 4.2 mmol/L (3.5-5.1); Sodium 138 mmol/L (136-145); Total Bilirubin 0.2 mg/dL (0.15-1.2); Total Protein 6.8 g/dL (6.6-8.7)
[2022-05-09] MEDS: OLANZapine 5 mg TABLET PO ×2 (11:28→15:01)
[2022-05-09] MEDS: palonosetron 0.25 mg/5 mL SDV IVP (11:30)
[2022-05-09] MEDS: famotidine 20 mg/2 mL INJ IVP (11:32)
[2022-05-09] MEDS: diphenhydrAMINE 50 mg/mL SDV 1mL 25 MG IVP (11:33)
[2022-05-09] MEDS: fosaprepitant 150 MG in sodium chloride 0.9% 150 ML 300 MG IV (11:45)
[2022-05-09] MEDS: potassium chloride 20 MEQ in sodium chloride 0.9% 500 ML 500 MEQ IV (13:47)
[2022-05-09] MEDS: FUROsemide 10 mg/mL SDV 2mL 20 MG IVP (15:02)
[2022-05-09 15:04] VITALS: BP 120/82; PULSE 89; RESP 16; TEMP 37.2; O2SAT 96
[2022-05-13] MEDS: famotidine 20 mg/2 mL INJ IVP (09:50)
[2022-05-13] MEDS: palonosetron 0.25 mg/5 mL SDV IVP (09:55)
[2022-05-13] MEDS: sodium chloride 0.9% 1,000 ML 100 ML IV (09:59)
[2022-05-16 08:23] LABS: Basophils % 0.3 %; Eosinophils % 0.4 %; Hematocrit 35.5 % (37.0-47.0); Hemoglobin 11.1 g/dL (11.5-15.3); Lymphocytes # 0.3 10^3/uL (0.8-4.8); Lymphocytes % 4.3 %; Mean Corpuscular HGB Conc 31.3 g/dL (30.0-36.0); Mean Corpuscular Hemoglobin 26.5 pg (28.0-34.0); Mean Corpuscular Volume 84.7 fl (81-99); Mean Platelet Volume 9.7 fL (7.4-10.4); Monocytes # 0.6 10^3/uL (0.2-0.9); Monocytes % 8.6 %; Neutrophils # 6.08 10^3/uL (1.8-7.7); Neutrophils % 84.9 %; Nucleated Red Blood Cells % 0 %; Platelet Count 189 10^3/cmm (130-400); Red Blood Count 4.19 10^6/uL (4.1-5.3); Red Cell Distribution Width 18.1 % (12.1-15.1); White Blood Count 7.2 10^3/uL (4.0-10.0)
[2022-05-16 08:54] LABS: Alanine Aminotransferase 12 U/L (0-33); Alkaline Phosphatase 69 U/L (35-105); Anion Gap 17.5 (5-19); Aspartate Amino Transferase 10 U/L (0-32); Blood Urea Nitrogen 16 mg/dL (6-20); Calcium 9.4 mg/dL (8.5-10.5); Carbon Dioxide 23 mmol/L (22-29); Chloride 103 mmol/L (98-107); Creatinine Clr Calc Pharmacy 149.9069; Globulin 2.7 g/dL (1.3-4.6); Glomerular Filtration Rate 113.8 mL/min (90-130); Glucose 101 mg/dL (65-115); Osmolality Calculated 289 mOsm/kg (285-295); Potassium 4.5 mmol/L (3.5-5.1); Sodium 139 mmol/L (136-145); Total Bilirubin 0.2 mg/dL (0.15-1.2); Total Protein 6.7 g/dL (6.6-8.7)
[2022-05-16] MEDS: palonosetron 0.25 mg/5 mL SDV IVP (10:26)
[2022-05-16] MEDS: OLANZapine 5 mg TABLET PO (10:26)
[2022-05-16] MEDS: famotidine 20 mg/2 mL INJ IVP (10:27)
[2022-05-16] MEDS: diphenhydrAMINE 50 mg/mL SDV 1mL 25 MG IVP (10:28)
[2022-05-16] MEDS: fosaprepitant 150 MG in sodium chloride 0.9% 150 ML 300 MG IV (10:31)
[2022-05-16] MEDS: potassium chloride 20 MEQ in sodium chloride 0.9% 500 ML 500 MEQ IV (12:35)
[2022-05-16 13:34] VITALS: BP 121/82; PULSE 85; RESP 16; TEMP 37.1
[2022-05-16] MEDS: FUROsemide 10 mg/mL SDV 2mL 20 MG IVP (13:34)
[2022-05-23 08:27] VITALS: BMI 26.7
[2022-05-23 08:42] LABS: Basophils % 0.2 %; Eosinophils % 0.3 %; Hematocrit 34.4 % (37.0-47.0); Lymphocytes # 0.6 10^3/uL (0.8-4.8); Lymphocytes % 8.6 %; Mean Corpuscular Hemoglobin 27.3 pg (28.0-34.0); Mean Corpuscular Volume 85.4 fl (81-99); Mean Platelet Volume 9.6 fL (7.4-10.4); Monocytes # 0.5 10^3/uL (0.2-0.9); Monocytes % 7.2 %; Neutrophils # 5.27 10^3/uL (1.8-7.7); Neutrophils % 82.1 %; Nucleated Red Blood Cells % 0 %; Platelet Count 198 10^3/cmm (130-400); Red Blood Count 4.03 10^6/uL (4.1-5.3); Red Cell Distribution Width 20.1 % (12.1-15.1); White Blood Count 6.4 10^3/uL (4.0-10.0)
[2022-05-23] MEDS: magnesium sulfate premix 2 GM/50 ML PIGGYBACK IV (09:00)
[2022-05-23] MEDS: sodium chlor 0.9% + KCl 20 mEq 20 MEQ/1,000 ML BAG 750 MEQ IV (09:00)
[2022-05-23 09:08] LABS: Alanine Aminotransferase 11 U/L (0-33); Albumin Level 3.7 g/dL (3.5-5.2); Alkaline Phosphatase 72 U/L (35-105); Anion Gap 15.9 (5-19); Aspartate Amino Transferase 11 U/L (0-32); Blood Urea Nitrogen 15 mg/dL (6-20); Calcium 8.9 mg/dL (8.5-10.5); Carbon Dioxide 23 mmol/L (22-29); Chloride 102 mmol/L (98-107); Globulin 2.6 g/dL (1.3-4.6); Glomerular Filtration Rate 140.4 mL/min (90-130); Glucose 109 mg/dL (65-115); Osmolality Calculated 285 mOsm/kg (285-295); Potassium 3.9 mmol/L (3.5-5.1); Sodium 137 mmol/L (136-145); Total Bilirubin 0.2 mg/dL (0.15-1.2); Total Protein 6.3 g/dL (6.6-8.7)
[2022-05-23] MEDS: palonosetron 0.25 mg/5 mL SDV IVP (10:59)
[2022-05-23] MEDS: dexamethasone 10 mg/mL INJ IVP (10:59)
[2022-05-23 11:30] VITALS: BP 112/64; PULSE 66; RESP 16; TEMP 36.3; O2SAT 98
--- NOTE | 2022-05-25 10:46 | N.ONRD TS_ITS ---
Radiation OncologyTreatment Summary Patient Name: Chelsea Vasques Date of : 1985 Date of Service: 05/25/2022 Attending Physician: Wiley Hauser M.D. 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 She was evaluated at the [facility] [place] in January for dyspareunia, vaginal discharge and bleeding. A colposcopy identified irregularity of the cervix. 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 She was referred to the [facility] in [place], [place]. An exam under anesthesia distal trachelectomy and debulking of cervical mass was performed by Cintia Hightower D.O. March 10, 2022. Intraoperative findings described an 8 cm x 8 cm exophytic cervical mass. There were no pelvic masses or rectovaginal nodularities. An MRI obtained on March 15, 2022 demonstrated a 1.3 cm soft tissue abnormality within the upper one third of the vagina and a 1.2 cm soft tissue nodularity in the left upper vagina. Borderline right iliac chain lymphadenopathy was reported. A PET scan ordered on March 09, 2022 revealed hypermetabolic activity within the cervix (SUV 5.7), right adnexa (SUV 16.5), right fallopian tube (SUV 8.1), and left para-colic gutter possibly representing a left ovarian tumor implant (SUV 8.9). A prominent right external iliac lymph node measuring 1.2 cm was reported without hypermetabolism. There was no radiographic evidence for metastatic disease. Pelvic radiotherapy was administered between the dates of April 18, 2022 through May 25, 2022. A prescribed dose of 50 Gy was delivered in 25 fractions encompassing 28 elapsed days. HDR brachytherapy was interposed with pelvic at [facility] in [place], [place]. She was prescribed cisplatin (40 mg/m2) weekly (5 cycles) during radiotherapy between the dates of April 18, 2022 through May 16, 2022. The cervix, vaginal canal, and pelvic lymph nodes were treated with an intensity modulated radiotherapy plan with a step and shoot treatment technique. The plan arranged nine gantry angles (0???, 30???, 60???, 100???, 150???, 210???, 260???, 290???, and 330???) replicating an arc. The collimator rotation was 0???. The field sizes measured between 14 cm x 25.5 cm to 14 cm x 26.5 cm. The SSDs measured a minimum of 78.2 cm to a maximum of 89.2 cm. The ports delivered 304 MU, 190 MU, 177 MU, 294 MU, 167 MU, 160 MU, 246 MU, 256 MU and 183 MU corresponding to the gantry angles described. All treatments were performed with the Aeropost linear accelerator and an isocentric technique. The dose was calculated by Anisotropic Analytic Algorithm. A photon energy of 15 MV was prescribed with the plan calculated to deliver 100% of the prescription dose to 95% of the planning target volume. Signed by: Dr. Wiley Hauser 05/25/2022 10:45:12 AM
--- NOTE | 2022-05-25 11:24 | PC.NURSE ---
Pt to GI lab for removal of PICC line as ordered per Dr. Gómez. PICC dc'd with 42 cm removed, catheter intact. No redness or bleeding noted. Pressure held. Pt instructed to return to ER for significant bleeding or SOB. Verbalized understanding. Tolerated well.
== END 2022-05-30 23:59 | disposition home or self-care (01) ==
PROVIDERS: Internal Medicine Medical Oncology; Nurse Practitioner; PCP Electrodiagnostic Medicine; Visit Provider Radiology Radiation Oncology
DX: C53.1 Malignant neoplasm of exocervix (principal)
CPT/HCPCS: 77336; 77386; 80053; 81001; 85025; 87086; 96365; 96366; 96367; 96375; 96413; J1100; J1200; J1453; J1940; J2469; J3475; J3480; J3490; J7030; J7040; J9060

== ENCOUNTER 2022-06-20 14:56 | Oncology outpatient (recurring) (ONCR) | payer OTHER, BC, SELFPAY ==
[2022-06-20 15:26] LABS: Basophils % 0.3 %; Eosinophils % 0.3 %; Hematocrit 33.8 % (37.0-47.0); Hemoglobin 10.7 g/dL (11.5-15.3); Lymphocytes # 0.8 10^3/uL (0.8-4.8); Lymphocytes % 10.6 %; Mean Corpuscular HGB Conc 31.7 g/dL (30.0-36.0); Mean Corpuscular Hemoglobin 28.2 pg (28.0-34.0); Mean Corpuscular Volume 88.9 fl (81-99); Mean Platelet Volume 10.3 fL (7.4-10.4); Monocytes # 0.5 10^3/uL (0.2-0.9); Monocytes % 7.3 %; Neutrophils # 5.89 10^3/uL (1.8-7.7); Neutrophils % 80.8 %; Nucleated Red Blood Cells % 0 %; Platelet Count 324 10^3/cmm (130-400); Red Cell Distribution Width 21.3 % (12.1-15.1); White Blood Count 7.3 10^3/uL (4.0-10.0)
[2022-06-20 15:34] LABS: Alanine Aminotransferase 15 U/L (0-33); Alkaline Phosphatase 86 U/L (35-105); Anion Gap 16.1 (5-19); Aspartate Amino Transferase 13 U/L (0-32); Blood Urea Nitrogen 17 mg/dL (6-20); Calcium 9.4 mg/dL (8.5-10.5); Carbon Dioxide 24 mmol/L (22-29); Chloride 104 mmol/L (98-107); Creatinine Clr Calc Pharmacy 152.2498; Globulin 3.3 g/dL (1.3-4.6); Glomerular Filtration Rate 113.8 mL/min (90-130); Glucose 90 mg/dL (65-115); Osmolality Calculated 291 mOsm/kg (285-295); Potassium 4.1 mmol/L (3.5-5.1); Sodium 140 mmol/L (136-145); Total Bilirubin 0.2 mg/dL (0.15-1.2); Total Protein 7.3 g/dL (6.6-8.7)
--- NOTE | 2022-06-20 16:20 | ONCRAD EPV_ITS ---
Radiation Oncology Established Patient Visit Patient: Caprice Tran [id number] : 1985> Age: 36> Sex: Female> Dictated by: Dr. Garrett Solitario Date of Service: 06/20/2022 Referring Physician(s) : Nikunj Gómez M.D. Diagnosis: C53.9 - Malignant neoplasm of cervix uteri, unspecified, Diagnosed 02/17/2022 (Active) Stage IIIC1, IIIC1 Radiotherapy to Date: Course: Cervical Ca 2021,Treatment Site: Cervical Ca, Ref. ID: [id number], Energy: 15X, Dose/Fx (cGy): 200, #Fx: 25 / 25, Dose Correction (cGy): 0, Total Dose (cGy): 5,000, Start Date: 04/18/2022, End Date: 05/25/2022, Elapsed Days: 37 Current History: Ms. Vasques returns for follow-up after completing treatment for a locally advanced cervix cancer. She presented with a large cervical mass, upper vaginal nodules on the right and left, masses in the right adnexa and fallopian tube, and a left paracolic gutter mass thought to represent the left adnexa. She also had suspicious though not conclusively abnormal right external iliac nodes. She received external beam radiation to the pelvis from 04/18 through . 5000 cGy in 25 fractions was given. From night from 04/18 through 05/25, she also received 5 weekly cycles of cisplatin. Beginning 05/17 she received 5 sessions of brachytherapy at [facility]. Dates of brachytherapy were 05/17 through 06/02/2022. During treatment the patient experienced diarrhea that required both Lomotil and Imodium A-D for control. This problem has significantly improved but she is still requiring medication at times. She has not found that altering her diet was of significant benefit. She also had significant bladder difficulty. During treatment she developed incontinence and dysuria. Both problems persist but both are improving. She has mild residual fatigue. No other complaints. Current Medications after treatment of a locally advanced cervix cancer.: BusPIRone HCl,returns for follow-uplORazepam, metoprolol Tartrate, sertraline HCl. Allergies: No Known Allergies Vital Signs: BMI 28 pulse 80 BP 128/88 2 sat 99% room air at rest pain 0/10 Physical Exam: General: Alert and oriented x 3. No acute distress. HEENT: Normocephalic, atraumatic. Extraocular Movements Intact: NECK: Supple without supraclavicular or jugular lymphadenopathy. LUNGS: Clear to auscultation bilaterally without rales, rhonchi or wheeze. HEART: Regular rate and rhythm, normal S1 and S2 without murmur, gallop or rub. ABDOMEN: Soft, nontender, nondistended without masses or organomegaly. Bowell sounds are present. NEUROLOGIC: Cranial nerves II ???XII are grossly intact. Normal gait, no ataxia. Performance Status: ECOG 1 Lab: . Pathology: Primary, c53.9 - malignant neoplasm of cervix uteri, unspecified, Diagnosed 02/17/2022 (active) stage iiic1, iiic1. Imaging: PET planned for August 2022 Impression: She has significantly improved in terms of the cancer. Dr. Spicer's summary of her brachytherapy indicated no evidence of disease. Side effects are improving at an acceptable rate. She is seeing Dr. Hightower in 2 weeks. She will have a PET in August. She will see Dr. Hauser in 3 to 4 months. Signed by: 06/20/2022 4:18:58 PM <<Signature on File>> Time spent with patient: CPT Code: CPT Code:
== END 2022-06-29 23:59 | disposition home or self-care (01) ==
PROVIDERS: Internal Medicine Medical Oncology; PCP Electrodiagnostic Medicine; Visit Provider Specialist
DX: Z08 Encounter for follow-up examination after completed treatment for malignant neoplasm; Z85.41 Personal history of malignant neoplasm of cervix uteri; R30.0 Dysuria; R19.7 Diarrhea, unspecified; N39.498 Other specified urinary incontinence; R53.83 Other fatigue; Z79.899 Other long term (current) drug therapy; Z92.3 Personal history of irradiation; Z92.21 Personal history of antineoplastic chemotherapy
CPT/HCPCS: 36415; 80053; 85025; 99214

== ENCOUNTER 2023-01-02 13:33 | Outpatient (RCR) | payer OTHER, BC, SELFPAY | END 2023-01-27 23:59 | disposition home or self-care (01) | LOC: SPT 13:33 | PROVIDERS: PCP Electrodiagnostic Medicine; Visit Provider Obstetrics & Gynecology Gynecologic Oncology | DX: I89.0 Lymphedema, not elsewhere classified (principal); Z85.41 Personal history of malignant neoplasm of cervix uteri | CPT/HCPCS: 97161 ==

== ENCOUNTER 2024-01-26 08:05 | Oncology outpatient (recurring) (ONCR) | payer OTHER, BC, SELFPAY ==
[2024-01-03 15:44] LABS: Basophils % 0.4 %; Eosinophils # 0.6 10^3/uL (0.0-0.8); Eosinophils % 5.6 %; Hematocrit 21.4 % (36-47); Lymphocytes # 1.5 10^3/uL (0.8-4.8); Lymphocytes % 14.8 %; Mean Corpuscular HGB Conc 29.4 g/dL (30-55); Mean Corpuscular Hemoglobin 24.5 pg (27-33); Mean Corpuscular Volume 83.3 fl (85-98); Monocytes # 0.5 10^3/uL (0.2-0.9); Monocytes % 5.2 %; Neutrophils # 7.55 10^3/uL (1.8-7.7); Neutrophils % 73.3 %; Nucleated Red Blood Cells % 0.2 %; Platelet Count 317 10^3/cmm (157-399); Red Blood Count 2.57 10^6/uL (3.85-5.65); Red Cell Distribution Width 16.1 % (12.1-15.1)
[2024-01-04] VITALS (10 sets, daily range): BP systolic 100–127; BP diastolic 65–84; PULSE 59–80; RESP 18; TEMP 36.6–37.1; O2SAT 99
[2024-01-26 08:32] VITALS: BP 122/86; PULSE 98; O2SAT 95
[2024-01-26] MEDS: sodium chloride 0.9% 250 ML 100 ML IV (08:47)
[2024-01-26] MEDS: iron sucrose 200 MG in sodium chloride 0.9% (100 ml) 100 ML 220 MG IV (08:47)
[2024-01-26 09:35] VITALS: BP 128/83; PULSE 75; RESP 16; TEMP 36.4; O2SAT 98
== END 2024-01-28 23:59 | disposition home or self-care (01) ==
PROVIDERS: PCP Electrodiagnostic Medicine; Visit Provider Internal Medicine Medical Oncology
DX: D50.9 Iron deficiency anemia, unspecified (principal); Z53.9 Procedure and treatment not carried out, unspecified reason
CPT/HCPCS: 36415; 36430; 85025; 86850; 86900; 86920; 96365; J1756; J7050; P9016

== ENCOUNTER 2024-02-02 08:01 | Oncology outpatient (recurring) (ONCR) | payer OTHER, BC, SELFPAY ==
[2024-01-29 15:45] VITALS: BP 127/80; PULSE 92; RESP 16; TEMP 36.8; O2SAT 95
[2024-01-29] MEDS: iron sucrose 200 MG in sodium chloride 0.9% (100 ml) 100 ML 220 MG IV (15:50)
[2024-01-29 16:20] VITALS: BP 117/71; PULSE 82; RESP 16; TEMP 36.8; O2SAT 97
[2024-01-31 08:19] VITALS: BP 126/74; PULSE 76; RESP 16; TEMP 36.6; O2SAT 99
[2024-01-31] MEDS: sodium chloride 0.9% 250 ML 75 ML IV (08:39)
[2024-01-31] MEDS: iron sucrose 200 MG in sodium chloride 0.9% (100 ml) 100 ML 220 MG IV (08:40)
[2024-01-31 09:20] VITALS: BP 126/85; PULSE 85; RESP 16; TEMP 36.6; O2SAT 97
[2024-02-02 08:10] VITALS: BP 113/77; PULSE 79; RESP 18; TEMP 36.5; O2SAT 98
[2024-02-02] MEDS: iron sucrose 200 MG in sodium chloride 0.9% (100 ml) 100 ML 220 MG IV (08:40)
[2024-02-02 09:25] VITALS: BP 120/80; PULSE 74; RESP 16; TEMP 36.3; O2SAT 74
== END 2024-02-28 23:59 | disposition home or self-care (01) ==
PROVIDERS: PCP Electrodiagnostic Medicine; Visit Provider Internal Medicine Medical Oncology
DX: D50.8 Other iron deficiency anemias; Z53.9 Procedure and treatment not carried out, unspecified reason
CPT/HCPCS: 96365; J1756; J7050

== ENCOUNTER 2025-07-23 14:41 | Emergency (ER) | payer OTHER, BC, SELFPAY ==
[2025-07-23 14:44] VITALS: BP 169/85; PULSE 97; TEMP 36.6; O2SAT 100
--- OUTSIDE RECORDS SUMMARY | 2025-07-23 14:48 | XMS_ITS | Encounter Summary ---
Author Organization [facility] Address [address] [place] [address] Care Team Providers Care Stiff Neck Loader Name Role Phone Magdiel Culver DO Primary Care Provider [phone] Encounter Details Date Type Department Care Team (Late Contact Info) Description 06/09/2025 Results Follow-Up [facility] [place] [address] [address] Dick Phan PA [address] [place] [address] [address] CHEST ABDOMEN PELVIS W CONT Social History Tobacco Use Types Packs/Day Years Used Date Smoking Tobacco: Never Smokeless Tobacco: Never Alcohol Use Standard Drinks/Week Comments Not Currently 0 (1 standard drink = 0.6 oz pur e alcohol) Feeling Safe Answer Date Recorded Are you in a relationship wi th someone who hurts you emotionally and/or physically? No 09/12/2024 Food Insecurity Answer Date Recorded Patient needs follow up regardin 11/20/2024 Transportation Needs Answer Date Record ed Patient needs follow up regardin 11/20/2024 Housing Stability Answer Date Recorded Social/Environmental Concerns No concerns Utility Needs Answer Date Recorded Patient needs follow up regardin 11/20/2024 Comments No Sex and Gender Information Value Date Recorded Sex Assigned at Not on file Legal Sex Female 2:20 PM CDT Gender Identity Not on file Sexual Orientation Not on file documented as of this encounter Plan of Treatment Upcoming Encounters Date Type Department Care Team (Late st Contact Info) Description 12/19/2025 10:50 AM CDT Office Visit [facility] [place] [address] [place] [address] Lucinda Madrigal MD [address] [place] [address] documented as of this encounter Visit Diagnoses Not on filedocumented in this encounter Care Teams Stiff Neck Loader Relationship Specialty Start Date End Date Magdiel Culver DO PCP - General Family Practice 03/29/22 documented as of this encounter
--- OUTSIDE RECORDS SUMMARY | 2025-07-23 14:48 | XMS_ITS | Clinical Summary ---
Author Organization [facility] Administrative Offices Address [address] [place] [address] Care Team Providers Care Disaster Recovery Manager Name Role Phone Magdiel Culver Primary Care Provider Allergies No known active allergies Medications loratadine (CLARITIN) 10 mg tablet Take 10 mg by mouth daily. Active multivitamin (DAILY-SUSANA) tablet Take 1 Tablet by mouth daily. Active fluticasone propionate (FLONASE) 50 mcg/spray [place], Suspension nasal inhaler Administer 2 Sprays in each nostril 2 times daily. 16 Gram 6 5 Active tirzepatide 2.5 mg/0.5 mL Pen Injector Inject 2.5 mg by subcutaneous injection every 7 days. Active conjugated estrogens-medro xyPROGESTERone (Prempro) 0.45-1.5 mg TabletIndicatio ns:Menopause, premature Take 1 Tablet by mouth daily. 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 03/10/2022 Cancer Staging:Clinical:FIGO Stage IIIC1(cM0) - Signed by Viola Spicer MD on 04/06/2022 Encounters Date Type Department Care Team Description 07/08/2025 External Device Data STL ABSTRACTION Provider, Abstract 06/24/2025 External Device Data STL ABSTRACTION Provider, Abstract 06/17/2025 External Device Data STL ABSTRACTION Provider, Abstract 06/12/2025 Orders Only [facility] [address] [phone] Cintia Hightower DO Mediastinal lymphadenopathy (Primary Dx); Hilar lymphadenopathy; History of cervical cancer - FIGO stage IIIC1r squamous cell carcioma of the cervix 06/12/2025 Chart Note [facility] [address] [phone] Cintia Hightower DO 06/11/2025 8:30 AM DIRECT SUPPORT WORKER Office Visit [facility] [address] [phone] Cintia Hightower DO Encounter for follow-up surveillance of cervical cancer (Primary Dx); History of cervical cancer - FIGO stage IIIC1r squamous cell carcioma of the cervix; Hilar lymphadenopathy; Mediastinal lymphadenopathy; Radiation proctitis; Menopause, premature; Abnormal findings on imaging test 06/10/2025 External Device Data STL ABSTRACTION Provider, Abstract 06/09/2025 Results Follow-Up [facility] [address] [phone] CHEST ABDOMEN PELVIS W CONT 06/06/2025 2:26 PM DIRECT SUPPORT WORKER - 06/06/2025 11:59 PM DIRECT SUPPORT WORKER Hospital Encounter [facility] CT Scan Orthopedic [facility] [address] [place] [phone] Cintia Hightower DO Discharge Disposition: Home or Self Care 06/03/2025 External Device Data STL ABSTRACTION Provider, Abstract 05/28/2025 External Device Data STL ABSTRACTION Provider, Abstract 05/27/2025 External Device Data STL ABSTRACTION Provider, Abstract 05/27/2025 Results Follow-Up [facility] [address] [place] [address] Rebeca Purcell, COURT MESSENGER CT SINOSCOPY 05/21/2025 External Device Data STL ABSTRACTION Provider, Abstract 05/20/2025 Telephone [facility] [place] [address] [facility] [address] [place] [address] scan 05/20/2025 Orders Only [facility] [place] [address] [place] [phone] Cintia Hightower, History of cervical cancer - FIGO stage IIIC1r squamous cell carcioma of the cervix (Primary Dx) 04/29/2025 External Device Data STL ABSTRACTION Provider, Abstract 04/29/2025 External Device Data STL ABSTRACTION Provider, Abstract from Last 3 Months Immunizations Immunization Administration Dates Next Due DTaP, Unspecified Formulation 10/17/1991 ,02/05/1988,02/13/1987,1986,1986 Hepatitis B Vaccine, Unspeci fied Formulation 06/15/1999,12/17/1998,11/12/1998 Family History Medical History Relation Name Comments High Cholesterol Maternal Grandfather Radis Hypertension Maternal Grandfather Radis Hearing Loss Maternal Grandmother Sushma Heart Disease Mother Wilda Breast Cancer Neg Hx Colon Cancer Neg Hx Ovarian Cancer Neg Hx Uterine Cancer Neg Hx Relation Name Status Comments Maternal Grandfather Radis Alive Maternal Grandmother Sushma Alive Mother Wilda Alive Social History Tobacco Use Types Packs/Day Years Used Date Smoking Tobacco: Never Smokeless Tobacco: Never Tobacco Cessation:Counseling Given: Not Answered Alcohol Use Standard Drinks/Week Comments Not Currently [...] on file Sexual Orientation Not on file Last Filed Vital Signs Vital Sign Reading Time Taken Comments Blood Pressure 142/98 06/11/2025 8:51 AM DIRECT SUPPORT WORKER patient states she is very anxious Pulse 81 06/11/2025 8:44 AM DIRECT SUPPORT WORKER Temperature 36.9 C (98.4 F) 06/11/2025 8:44 AM DIRECT SUPPORT WORKER Respiratory Rate 17 09/13/2024 3:05 PM DIRECT SUPPORT WORKER Oxygen Saturation 100% 06/11/2025 8:4 4 AM DIRECT SUPPORT WORKER Inhaled Oxygen Concentration - - Weight 89.8 kg (198 lb) 06/11/2025 8:44 AM DIRECT SUPPORT WORKER Height 175.3 cm (5' 9 ) 06/11/2025 8:44 AM DIRECT SUPPORT WORKER Body Mass Index 29.24 06/11/2025 8:44 AM DIRECT SUPPORT WORKER Plan of Treatment Upcoming Encounters Date Type Department Care Team (Late st Contact Info) Description 12/19/2025 10:50 AM CDT Office Visit [facility] Endocrinology [facility] [address] [place] [address] [place] [phone] Lucinda Madrigal MD [address] [phone] Health Maintenance Due Date Last Done Comments Pre-Diabetes and Diabetes Screening 1985 INFLUENZA VACCINE (#1) 2025 05/01/2013, 2007 COVID-19 Vaccine (2 - 2024-2 6 season) 2025 02/09/2021 PAP SMEAR 11/21/2027 11/20/2024 COLORECTAL SCREENING 05/01/2029 05/01/2024, 05/01/2024, 01/11/2024, Additional history exists CERVICAL CANCER SCREENING 11/20/2029 HPV/Cotest (21-29) 11/20/2029 11/20/2024 HPV/Cotest (30-65) 11/20/2029 11/20/2024 DTAP/TDAP/TD VACCINES (2 - T d or Tdap) 09/07/2030 09/07/2020, 10/17/1991, 02/05/1988, Additional history exists HEPATITIS B VACCINES Completed 06/15/1999, 12/17/1998, 11/12/1998 HPV VACCINES (No Doses Required) Completed Medical Devices Implanted Type Area Tread Booker Device Identifier Shelf Expiration Date Model / Serial / Lot Clip Crtg Med/Lrg 1112 - [id number] Implanted:Qty: 1 on 04/08/2022 by Cintia Hightower DO at [facility] Clip N/A: Ovary [employer] [id number] 12/25/2026 1112 / / [id number] Hemostatic Surgiflo 8ml W/ Thrombin 2994 - [id number] Implanted:Qty: 1 on 03/10/2022 by Cintia Hightower DO at [facility] Hemostatic N/A: Vagina J[employer]J- [employer] [id number] 04/29/2023 2994 / / [id number] Hemostatic Surg Powder 3013sp - [id number] Implanted:Qty: 1 on 04/08/2022 by Cintia Hightower DO at [facility] Hemostatic N/A: Pelvis J[employer]J- [employer] [id number] 04/29/2023 3013SP / / [id number] Agent Hemostat Surgicel 2x3in 1952s - [id number] Implanted:Qty: 1 on 09/12/2024 by Atilio Christine DO at [facility] Hemostatic Left: Chest J[employer]J- [employer] [id number] 01/27/20291952S / / [id number] Agent Hemostat Surgicel 2x3in 1952s - [id number] Implanted:Qty: 1 on 09/12/2024 by Atilio Christine DO at [facility] Hemostatic Left: Chest J&J- [employer] [id number] 01/27/20291952S / / [id number] Sealant Tissue Tridyne Vasc Adhsv 4ml Kit [id number] - [id number] Implanted:Qty: 1 on 09/12/2024 by Atilio Christine DO at [facility] Tissue Left: Chest BARD DAVOL 02/28/2025 [id number] / / [id number] Explanted Type Area Tread Booker Device Identifier Shelf Expiration Date Model / Serial / Lot Sleeve Shahid Brachytherapy 80mm 189.682 - [id number] Implanted:Qty: 1 on 05/17/2022 by Cintia Hightower DO at [facility] Explanted:Qty: 1 on 06/02/2022 by Cintia Hightower DO at [facility] Other N/A: Cervix NUCLETRON EVA 03/09/2023 [id number] / / [id number] Procedures Procedure Name Priority Date/Time Associated Diagnosis Comments CT CHEST ABDOMEN PELVIS W CONT Stat 06/06/2025 2:54 PM DIRECT SUPPORT WORKER History of cervical cancer - FIGO stage IIIC1r squamous cell carcioma of the cervix POC CREATININE Routine 06/06/2025 2:34 PM DIRECT SUPPORT WORKER CERV/VAG CYTO SCREEN PAP W/HPV Routine 11/20/2024 9:25 AM CDT Screening for cervical cancer History of cervical cancer - FIGO stage IIIC1r squamous cell carcioma of the cervix COLONOSCOPY REPORT 05/01/2024 2: 44 PM CDT from Last 3 Months or Most Recently Relevant to Health Maintenance Results * CT CHEST ABDOMEN PELVIS W CONT (06/06/2025 2:54 PM DIRECT SUPPORT WORKER) Anatomical Region Laterality Modality Chest Computed Tomogra phy 06/06/2025 2:37 PM DIRECT SUPPORT WORKER Impressions 06/06/2025 3:24 PM DIRECT SUPPORT WORKER IMPRESSION: 1. There has been no significant change in size of the dominant left lower lobe or smaller lingular nodule since the 11/15/2024 PET/CT. No new pulmonary nodules, however. 2. Demonstration of left hilar lymphadenopathy in keeping with known metastatic disease on prior PET/CT. No newly enlarged lymph nodes are noted within the chest. 3. No convincing evidence of metastatic disease below the diaphragm. 4. Neurologic is moderate wall thickening and adjacent stranding likely secondary to post radiation changes. 5. Other findings as above. Incidental findings as above. Narrative 06/06/2025 3:24 PM DIRECT SUPPORT WORKER CT CHEST ABDOMEN PELVIS W CONT Reason For Exam: Metastatic disease evaluation;Routine cancer surveillance.. Diagnosis: History of cervical cancer. CONTRAST: This exam was aided by the intravenous administration of nonionic contrast. TECHNIQUE: CT of the chest, abdomen, and pelvis utilizing IV contrast. COMPARISON: 11/15/2024 FINDINGS: CHEST: LUNGS: No focal consolidation. 1.4 cm while left lower lobe nodule image 96 series 4 has not definitely changed compared to the 11/15/2024 PET/CT. Left upper lobe 0.6 cm nodule on image 153 series 4 also has not significantly changed in size. No new pulmonary nodules. PLEURA: No pneumothorax or pleural effusion. LYMPH NODES: Enlarged left hilar lymph node measures 1.2 cm in short axis on image 95. No newly enlarged lymph nodes are seen within the chest otherwise. HEART: Heart size is within normal limits for age. No pericardial effusion is seen. GREAT VESSELS: Visualized portions of the aorta and main pulmonary artery are within normal limits for age. ABDOMEN/PELVIS: LIVER AND BILIARY: Liver demonstrates normal attenuation. No evidence of intrahepatic biliary dilatation. PANCREAS: The pancreas enhances normally and is otherwise unremarkable. SPLEEN: The spleen is not enlarged and is otherwise unremarkable. KIDNEYS: The kidneys enhance symmetrically and do not show evidence of hydronephrosis. Nonobstructive left nephrolithiasis. ADRENALS: The adrenal glands are unremarkable. LYMPH NODES: No enlarged lymph nodes are seen in the abdomen or pelvis. BOWEL: Bowel caliber is within normal limits without evidence of surrounding stranding/inflammation. Appendix is unremarkable. PERITONEUM/MESENTERY: No free air or pneumatosis is seen. No free fluid is seen. URINARY BLADDER/ADNEXA: Urinary bladder shows mild adjacent stranding as well as moderate wall thickening.. No suspicious adnexal mass is seen. Ovaries have been surgically moved to the bilateral paracolic gutters and are grossly unremarkable. Uterus is present. AORTA/VASCULAR: Abdominal aorta is non-aneurysmal. MUSCULOSKELETAL: Review of bone windows does not reveal a suspicious osseous lesion. Procedure Note Deonte Antonio MD - 06/06/2025 CT CHEST ABDOMEN PELVIS W CONT Reason For Exam: Metastatic disease evaluation;Routine cancer surveillance.. Diagnosis: History of cervical cancer. CONTRAST: This exam was aided by the intravenous administration of nonionic contrast. TECHNIQUE: CT of the chest, abdomen, and pelvis utilizing IV contrast. COMPARISON: 11/15/2024 FINDINGS: CHEST: LUNGS: No focal consolidation. 1.4 cm while left lower lobe nodule image 96 series 4 has not definitely changed compared to the 11/15/2024 PET/CT. Left upper lobe 0.6 cm nodule on image 153 series 4 also has not significantly changed in size. No new pulmonary nodules. PLEURA: No pneumothorax or pleural effusion. LYMPH NODES: Enlarged left hilar lymph node measures 1.2 cm in short axis on image 95. No newly enlarged lymph nodes are seen within the chest otherwise. HEART: Heart size is within normal limits for age. No pericardial effusion is seen. GREAT VESSELS: Visualized portions of the aorta and main pulmonary artery are within normal limits for age. ABDOMEN/PELVIS: LIVER AND BILIARY: Liver demonstrates normal attenuation. No evidence of intrahepatic biliary dilatation. PANCREAS: The pancreas enhances normally and is otherwise unremarkable. SPLEEN: The spleen is not enlarged and is otherwise unremarkable. KIDNEYS: The kidneys enhance symmetrically and do not show evidence of hydronephrosis. Nonobstructive left nephrolithiasis. ADRENALS: The adrenal glands are unremarkable. LYMPH NODES: No enlarged lymph nodes are seen in the abdomen or pelvis. BOWEL: Bowel caliber is within normal limits without evidence of surrounding stranding/inflammation. Appendix is unremarkable. PERITONEUM/MESENTERY: No free air or pneumatosis is seen. No free fluid is seen. URINARY BLADDER/ADNEXA: Urinary bladder shows mild adjacent stranding as well as moderate wall thickening.. No suspicious adnexal mass is seen. Ovaries have been surgically moved to the bilateral paracolic gutters and are grossly unremarkable. Uterus is present. AORTA/VASCULAR: Abdominal aorta is non-aneurysmal. MUSCULOSKELETAL: Review of bone windows does not reveal a suspicious osseous lesion. IMPRESSION: 1. There has been no significant change in size of the dominant left lower lobe or smaller lingular nodule since the 11/15/2024 PET/CT. No new pulmonary nodules, however. 2. Demonstration of left hilar lymphadenopathy in keeping with known metastatic disease on prior PET/CT. No newly enlarged lymph nodes are noted within the chest. 3. No convincing evidence of metastatic disease below the diaphragm. 4. Neurologic is moderate wall thickening and adjacent stranding likely secondary to post radiation changes. 5. Other findings as above. Incidental findings as above. Cintia Hightower DO CT ORDERABLES Final Result * POC CREATININE (06/06/2025 2:34 PM DIRECT SUPPORT WORKER) CREATININE POC 0.90 0.60 - 1.30 mg/dL 06/06/2025 2:34 PM DIRECT SUPPORT WORKER [facility] GFR POC >60 >=60 mL/min/1.7 3 sq meter 06/06/2025 2:34 PM DIRECT SUPPORT WORKER [facility] Comment:eGFR calculated with 2020 CKD-EPI equation. Vegetarian diet, extremely high or low muscle mass, and may affect results. Cystatin C with Glomerular Filtration Rate is a suitable alternative for these patients. Blood, whole 06/06/2025 2:34 PM DIRECT SUPPORT WORKER 06/06/2025 4:29 PM DIRECT SUPPORT WORKER Cintia Hightower DO POINT OF CARE TESTING Final Result [facility] CLIA #[id number] [address] [place] [address] * CERV/VAG CYTO SCREEN PAP W/HPV (11/20/2024 9:25 AM CDT) CLINICAL INFORMATION [facility] Comment:None given LAST MENSTRUAL PERIOD [facility] Comment:NONE GIVEN PREV PAP: [facility] Comment:NONE GIVEN PREV BX: [facility] Comment:NONE GIVEN SOURCE [facility] Comment:ENDOCERVIX ADEQUACY: [facility] Comment: Satisfactory for evaluation. Endocervical/transformation zone component present. Age and/or menstrual status not provided PAP INTERP [facility] Comment: Cytology Results: Negative for intraepithelial lesion or malignancy. COMMENT (PAP TEST) [facility] Comment: This Pap test has been evaluated with computer assisted technology. IMPORTER EXPORTER: [facility] Comment: [place], CT(ASCP) CT Screening location: [address] [place] [address] EXPLANATORY NOTE [facility] Comment: EXPLANATORY NOTE: The Pap is a screening test for cervical cancer. It is not a diagnostic test and is subject to false negative and false positive results. It is most reliable when a satisfactory sample, regularly obtained, is submitted with relevant clinical findings and history, and when the Pap result is evaluated along with historic and current clinical information. HPV E6/E7 Not Detected Not Detected [facility] Comment: Methodology: Silk Trimmer-Mediated Amplification This assay detects E6/E7 viral messenger RNA (mRNA) from 14 high-risk HPV types (16,18,31,33,35,39,45,51,52,56,58,59,66,68). Cervical sources are required for HPV testing. If a vaginal source from a patient who has had a total hysterectomy with removal of cervix was submitted, please contact the testing laboratory for alternative testing options. For additional information, please refer to http://education.[employer]/faq/NBF200h2 (This link if provided for information/ educational purposes only.) Test Performed at: [address] [phone] [employer] Genital SWAB OF ENDOCERVIX / Unknown 11/20/2024 9:25 AM CDT 11/21/2024 3:52 PM CDT Cintia Hightower DO PATHOLOGY/CYTOLOGY ORDERABLE S Final Result [facility] [phone] [phone] * COLONOSCOPY REPORT (05/01/2024 2:44 PM CDT) Narrative Procedure Note Edis Tinsley MD - 05/01/2024 2:44 PM CDT [facility] GI Patient Name: Chelsea Hamm Procedure Date: 05/01/2024 Date of : 1985 Admit Type: Outpatient Age: 38 Attending MD: Edis Tinsley , , Procedure: Colonoscopy Indications: Rectal bleeding, follow up of radiation proctosigmoiditis Providers: Edis Tinsley Referring MD: Magdiel Culver DO Medicines: Monitored Anesthesia Care Complications: No immediate complications. Procedure: After I obtained informed consent, the scope was passed under direct vision. Throughout the procedure, the patient's blood pressure, pulse, and oxygen saturations were monitored continuously. The Colonoscope was introduced through the anus and advanced to the terminal ileum, with identification of the appendiceal orifice and IC valve. The colonoscopy was performed without difficulty. The patient tolerated the procedure well. The quality of the bowel preparation was evaluated using the BBPS ([place] Bowel Preparation Scale) with scores of: Right Colon = 3, Transverse Colon = 3 and Left Colon = 3 (entire mucosa seen well with no residual staining, small fragments of stool or opaque liquid). The total BBPS score equals 9. Estimated Blood Loss: Estimated blood loss was minimal. Findings: The mucosa vascular pattern in the rectum, in the recto-sigmoid colon and in the sigmoid colon was increased. Coagulation for hemostasis using argon plasma was successful. The exam was otherwise without abnormality on direct and retroflexion views. Impression: - Increased mucosa vascular pattern in the rectum, in the recto-sigmoid colon and in the sigmoid colon. Much improved from the last exam. Treated with argon plasma coagulation (APC). - The examination was otherwise normal on direct and retroflexion views. - No specimens collected. - Retroflexion was performed in the right colon to aid in adenoma detection. Recommendation: - Repeat colonoscopy PRN for retreatment, and in 10 years for screening. - Use MAC due to tortuous & frozen sigmoid from radiation. Did not tolerate exam with conscious sedation in December. I used an ultra slim colonoscope on this exam which was helpful although some looping in the right colon, peds scope may also work. Edis Tinsley, 05/01/2024 2:44:43 PM Number of Addenda: 0 Note Initiated On: 05/01/2024 1:54 PM Scope Withdrawal Time 0 hours 20 minutes 58 seconds Scope In: 2:03:37 PM Scope Out: 2:31:54 PM [address] [place], [place] Edis Tinsley MD GI PROCEDURE ORDERABLES Final Result from Last 3 Months or Most Recently Relevant to Health Maintenance Insurance Member Subscriber Plan / Payer (Ef fective 2025-Present) Name:Chelsea Hamm Relation to Subscriber:Self Name:Chelsea Hamm Payer ID:[id number] (NAIC) Type:O Address: [facility] [id number] [address] BLUE ACCESS/TRUE BLUE O [facility] Advance Directives For more information, please contact: [phone] * Full Code (Latest Code Status on File) Date Activated Date Inactivated Comments 09/12/2024 8:00 AM 09/13/2024 6:44 PM * Full Code Date Activated Date Inactivated Comments 09/12/2024 6:13 AM 09/12/2024 8:00 AM * Full Code Date Activated Date Inactivated Comments 05/01/2024 12:52 PM 05/01/2024 5:22 PM * Full Code Date Activated Date Inactivated Comments 01/23/2024 11:43 AM 01/25/2024 2:30 PM * Full Code Date Activated Date Inactivated Comments 01/10/2024 11:01 AM 01/10/2024 12:10 PM Care Teams Disaster Recovery Manager Relationship Specialty Start Date End Date Magdiel Culver DO PCP - General Family Practice 03/29/22
--- OUTSIDE RECORDS SUMMARY | 2025-07-23 14:48 | XMS_ITS | Data Portability ---
Author Organization LASHANDA Rajat Caro [facility], .L[facility], [facility] Address [address] [address] Care Team Providers Care Python Engineer Name Role Phone SANDRA ROWAN Primary Care Provider Assessment Encounter Date Assessment Date Assessment LastModified by Organization Details LastModified Time 06/25/2024 06/25/2024 pt is concerned about insurance coverage due to Martina not taking anthem [employer] anymore. Pt desires seeing [facility] in [place]. Not available 07/01/2024 08:45:28 09/17/2024 09/17/2024 Document scribed by Anselmo Jacques Scribe. I was present during interview and exam. I have reviewed and agree with above documentation. Dr. Sandra Rowan. Reviewed pathology on [facility] portal with pt, explained no current evidence of malignancy in lymph nodes, but final results are not in yet. There is evidence of fungal growth, but this can take awhile to return, otherwise this is appearing benign. We will consider removing chest tube suture at recheck in 1 week. counseled on wound care, expectations. [email or web address] Not available 09/17/2024 14:46:25 09/25/2024 09/25/2024 Document scribed by Anselmo Jacques Scribe. I was present during interview and exam. I have reviewed and agree with above documentation. Dr. Sandra Rowan. Reviewed pathology on [facility] portal with pt, explained no current evidence of malignancy in lymph nodes, but final results are not in yet. There is evidence of fungal growth, but this can take awhile to return, otherwise this is appearing benign. TB test negative per portal today. No evidence of malignancy. Counseled she will likely be referred to ID after seeing [facility] in [place] next week. left chest tube incision healing, suture removed. [email or web address] Not available 09/26/2024 17:57:27 12/24/2024 12/24/2024 Document scribed by Antony Reddy Team Facilitator. I was present during interview and exam. I have reviewed and agree with above documentation. Dr. Sandra Rowan. [email or web address] Not available 12/24/2024 17:59:52 06/12/2025 06/12/2025 Document scribed by Antony Reddy Team Facilitator. I was present during interview and exam. I have reviewed and agree with above documentation. Dr. Sandra Rowan. Reviewed and discussed Onc visit from 06/11/25. [email or web address] Not available 06/12/2025 10:49:18 Plan of Treatment Reminders Order Date Submit Date Provider Last Modified By Organization Details Last Modified Time Details Appointments None recorded. Lab None recorded. Referral endocrinolo gy referral - [facility] Endo [address] Endocrinology , [address] [facility], [address], [place], [address], 10:09:40 ENT surgery referral - [facility] . [address] Ent, [address] [facility], [address], [place], [address], 12:48:18 oncologist referral 2023 024 [email or web address] Not available 11:57:18 Procedures None recorded. Surgeries None recorded. Imaging XR, chest, 2 view 2024 025 [email or web address] [facility] ([facility]), [address] [place], [address], 19:02:53 XR, chest, 2 view [address] ([facility]), [address] [place], [address], 5 13:05:07 PET-CT, whole body scan - Please confirm insurance is in network. Pt prefers either Moble PET here at [facility], or to go to [facility]. 2023 024 [email or web address] [facility] (Scheduling Orders), [address] [place], [address], 4 10:15:00 Medication Orders escitalopra m 10 mg tablet [address], [address], 11:36:20 buspirone 10 mg tablet [address], [address] [place] [address], [address], 11:36:20 gabapentin 300 mg capsule [address], [address], 17:51:17 oxycodone 5 mg tablet 2024 025 [facility], [address] [place] [address], [address], 17:51:17 escitalopra m 10 mg tablet [address], [address], 11:49:22 lorazepam 0.5 mg tablet 2023 024 [facility], [address] [place], [address], 10:47:53 Patient TargetsNo targets recorded. Patient InstructionsNo instructions recorded. Reason for Referral Referring Physician: Sandra briones, Family Medicine, Encounter Date: 06/25/2024 ENT Surgery Referral for Voc al cord paralysis [facility]. Referring Physician: Sandra Rowan Family Medicine, Encounter Date: 12/24/2024 Endocrinology Referral for H istory of malignant neoplasm of cervix [facility] Referring Physician: Sandra Rowan Family Medicine, Encounter Date: 12/24/2024 Results Created Date Observation Date Name Description Value Unit Range Abnormal Flag Note LastModifiedBy Organization Detail LastModifiedTime 07/19/20 24 07/10/2024 PET-C T, whole body scan No observ ation record ed. [address] [place], [address], 07/29/2024 12:58:17 09/17/19 25 09/17/2024 XR, chest , 2 view No observ ation record ed. [address] ([facility]) [address] [place], [address], 09/17/2024 12:10:16 09/17/19 25 09/17/2024 XR, chest , 2 view No observ ation record ed. [address] [place], [address], 09/19/2024 16:37:25 09/25/19 25 09/25/2024 XR, chest , 2 view No observ ation record ed. [address] ([facility]) [address] [place], [address], 09/25/2024 18:51:39 09/25/19 25 09/25/2024 XR, chest , 2 view No observ ation record ed. [address] [facility] [address] [place], [address], 09/27/2024 08:04:06 Result Notes None recorded. Problems Name Problem SNOMED Code Status Onset Date Resolution Date Notes Provider Name and Address Organization Details Recorded Time High risk for cervical cancer 40974740738 9100 Completed 202109/25/2024 Cervical Cancer; Date: 02/18/20; 06/22/20 10:35AM by Diana Strange, Office Visit; Promoted ; acuity set as *; Removal Reason: hx Kathy mackenzie [facility] 5 08:41:39 Chronic diarrhea 047909257 Completed 202309/25/2024 Removal Reason: resolved Kathy mackenzie [facility] 5 08:41:16 Iron deficien cy anemia 19208347 Active 2023 Kathy mackenzie, [facility] 5 08:41:33 [facility] hyperten bharat 21107291 Active 2023 Kathyalyce mackenzie, [facility] 5 08:41:21 Generali zed anxiety disorder 01908738 Active 2023 Kathy Davis avril [facility] 5 08:41:26 Lower gastroin testinal hemorrha ge 24544394 Completed 202309/25/2024 Removal Reason: hx Kathy mackenzie [facility] 5 08:42:16 Hematoch ezia 358969593 Completed 202309/25/2024 Removal Reason: hx Kathy mackenzie [facility] 5 08:42:10 Radiatio n proctiti s [id number] Completed 202309/25/2024 Removal Reason: hx Sandra Rowan DO [address] [place], [address], [facility] 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 5 08:41:55 Malignan t ascites 374858620 Completed 202309/25/2024 Removal Reason: hx Kathy Camilodyana mackenzie [facility] 5 08:41:44 Malignan t neoplasm of uterus 506344543 Completed 202309/25/2024 Removal Reason: israel Rowan DO [address] [place], [address], [facility] 5 17:51:43 History of malignan t neoplasm of cervix 704347605 Active 2024 Antony mackenzie [facility] 5 18:06:19 Nodule of lung 741939828 Active 2024 Antony mackenzie [facility] 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 In January 2022 she had presented with vaginal discharge and some intermittent bleeding. Her exam at that time was abnormal, as the cervical os was not visible, with the entire cervix noted to be obliterated and unrecognizable. Biopsies of the cervix at 7:00 showed invasive nonkeratinizing poorly differentiated squamous cell carcinoma. The tumor was noted to be strongly and diffusely positive for P16 and strongly positive for P53. She then had [facility] oncology consultation with Dr. Cintia Hightower, and on 03/10/2022 she underwent distal trachelectomy and debulking of cervical mass. Her exam under anesthesia showed an 8 x 8 cm exophytic cervical mass. The uterus was noted to be mobile. There were no palpable pelvic masses and there was no rectovaginal nodularity noted. Pathology from the cervical mass showed fragments of poorly differentiated invasive squamous cell carcinoma with focal lymphovascular invasion identified. The endocervical curettings showed benign endocervix with no evidence of dysplasia. MRI of the pelvis on 03/15/2022 showed foci of somewhat nodular soft tissue at the upper one third of the vagina in the region of the presumed cervical mass, possibly representing residual tumor versus sequelae of recent surgery. There was no suspicious extra serosal extension of tissues seen beyond the cervix or vagina. There was borderline enlargement of a presumed right iliac chain lymph node in the right adnexal area. Further evaluation with PET/CT on 03/16/2022 showed residual low-level FDG uptake in the region of the cervix, favoring postsurgical inflammation. Abnormal hypermetabolism within the right adnexa and extending along the right lateral aspect of the uterus was suspicious for viola metastatic involvement or tumor implantation. Additional hypermetabolic soft tissue was noted adjacent to the left ovary, indeterminate but also suspicious for tumor implantation. On 04/08/2022 she underwent laparoscopic pelvic lymphadenectomy, periaortic lymph node dissection, and bilateral salpingectomy. Pathology showed benign fallopian tubes and no metastatic involvement and a total of 39 lymph nodes. Her final staging was FIGO IIA2. She was recommended to undergo standard chemoradiation. She then underwent PICC line insertion, and she began her week 1 cisplatin concurrently with radiation on 04/18/2022. She was able to tolerate that treatment with acceptable toxicity, and she then continued cisplatin infusions weekly. She received her week 5 treatment on 05/16/2022. At week 6, on 05/23/2022, her treatment was held, as she had only 2 remaining radiation fractions. Her radiation was completed on 05/25/2022 to a total dose of 5000 cGy administered in 25 fractions. During the final week of radiation she also completed her HDR brachytherapy. She is seen for a follow-up visit. She has been feeling pretty good generally. She says her energy is getting better. ECOG score is 1. She has good appetite. She has not had fever. She is having hot flashes and sweating. She has not had sore mouth or throat. She does not complain of cough, and she has not been having shortness of breath or chest pain. She still occasionally has loose stools, but her diarrhea is otherwise resolved. Her bladder symptoms also are improving. She complains that her hips have been pretty sore. She has no focal neurologic symptoms. Treatment Plan CISplatin Q7D with Concurrent Radiation Clinical Indication No Indication Cycle Number Last Admin 5 of 6 Completed May 16 Cycle Day Next Admin No Active Chemotherapy Allergies No Known Allergies Allergy (Verified 06/20/22 15:33) Home Medications - Last Reconciled 06/20/22 by Jovita Kc LPN ibuprofen 200 mg PO Q6H PRN loperamide 2 mg PO DAILY PRN phenazopyridine 95 mg PO BID PRN PFSH Medical History Cervical cancer Chronic anxiety Hypertension Iron deficiency anemia Surgical History History of cervical biopsy (02/17/22) History of cystoscopy (03/10/22) Exam of bladder and rectum, core of tumor and cut blood supply to cervical tumor @ [place], [place] History of lymph node biopsy (04/08/22) Laparoscopic pelvic lymphadenectomy and periaortic lymph node dissection Status post trachelectomy Distal trachelectomy with debulking of cervical mass Family History Grandmother Family history of thyroid problem Maternal Hypertension Maternal Lung disease Grandfather Family history of thyroid problem Maternal Hypertension Maternal Hyperlipidemia Maternal Mother Hypertension CAD (coronary artery disease) AFIB Denies family history of Colon cancer Ovarian cancer Diabetes Clotting disorder Heart disease Psychiatric illness Chronic kidney disease (CKD) Breast cancer Suicide Anesthesia complication Bleeding disorder Cancer Uterine cancer Stroke Social History Smoking and tobacco status: never smoked ECOG 0-5 Rating Score ECO Physical Exam Narrative EXAM NARRATIVE: Constitutional: She looks good generally. Eyes: Sclerae nonicteric. Conjunctivae clear. ENMT: No lesions noted in the oral cavity. Hematologic/Lymphatic: No cervical, clavicular, or axillary adenopathy. Respiratory: Lungs are clear with good air movement bilaterally. Cardiovascular: Heart rhythm is regular. There is no murmur, gallop, or rub noted. Abdomen: Soft. Liver and spleen are not enlarged. There is no abdominal mass or ascites noted and there is no inguinal adenopathy. Extremities: No edema. She does have some mild tenderness just below the right popliteal fossa. There is no other palpable abnormality in that area. The calf feels soft. Neurologic: No focal neurologic deficits noted. Supplemental Info CBC shows hemoglobin 10.7 g, white blood cell count 7300, and platelet count 324,000. Comprehensive metabolic profile shows normal renal function with BUN 17 and creatinine 0.6 mg/dL. Bilirubin and liver enzymes are normal. 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 On 03/10/2022 her exam under anesthesia showed an 8 x 8 cm exophytic mass, and at that point she underwent trachelectomy and debulking of the mass. Her staging MRI and PET/CT were suspicious for pelvic lymph node involvement, consistent with FIGO stage IIIC1 disease. On 04/08/2022 she underwent laparoscopic pelvic lymphadenectomy and periaortic lymph node dissection with pathology showing no involvement in a total of 39 lymph nodes. Thus her final staging was FIGO stage IIA2. She was recommended to proceed with standard chemoradiation utilizing weekly cisplatin for chemosensitization. She began pelvic radiotherapy and weekly cisplatin at 40 mg/m IV infusion on 04/18/2022. She completed radiation on 05/25/2022 to a total dose of 5000 cGy administered in 25 fractions. She completed a total of 5 weekly cisplatin infusions, the 6th having been omitted as at that point she was very close to completing her radiation treatment. She also completed HDR brachytherapy during her final week of external beam radiation. She did have fairly severe diarrhea during her radiotherapy and she also had some cystitis symptoms, but she otherwise tolerated the treatment well. She has had a good clinical response. At this point she appears to be doing well clinically. She is going to continue [facility] oncology follow-up with Dr. Hightower. I will plan to see her here again only as needed. (2) Other iron deficiency anemias: Assessment & Plan: She has been mildly anemic. Her initial serum iron studies showed low transferrin saturation at 7.0% and the ferritin was also relatively low at 20 ng/mL, consistent with iron deficiency. She has been on oral iron supplementation. She will need follow-up CBC and serum iron studies to make sure this corrects. If not, she may require parenteral iron replacement. Orders: Orders Total Iron Binding Capacity 06/20/22 D50.8 - Other iron deficiency anemias Coding Level of Care Code OFFICE/ OP VISIT EST LV 4 Diagnoses Malignant neoplasm of exocervix C53.1 Other iron deficiency anemias D50.8 Intake Vital Signs 05/23/22 08:33 06/20/22 15:30 Height 1.75 m 1.75 m Weight 85.842 kg BMI 27.9 BP 128/88 Respiration 16 Pulse 80 Temp 98.4 F Pulse Oximetry (%) 99 Intake Visit Reasons: Oncology Is patient being treated for pain today?: Yes Pain scale (1-10): 2 Onset: 1 - 14 days Duration: days Characteristic: aching Location: Behind right knee Allergies No Known Allergies Allergy (Verified 06/20/22 15:33) Home Medications Home Medications - Last Reconciled 06/20/22 by Jovita Kc LPN ibuprofen 200 mg PO Q6H PRN loperamide 2 mg PO DAILY PRN phenazopyridine 95 mg PO BID PRN Health Maintenance Does patient have any barriers to learning?: No Does patient have any communication needs?: Glasses Does patient use assistive: No Cane, No Walker, No Wheelchair, No Commode Chair, No Hospital Bed and No Respiratory Assist Device TB/MDRO TB Screening Tuberculosis Symptoms: None MDRO (Multi-drug Resistant Organisms) Have you had Methicillin-Resistant Staphylococcus Aureus (MRSA)?: No Have you had Clostridium Difficile (C-Diff)?: No Have you had Vancomycin-Resistant Enterococci (VRE)?: No Was patient provided education on preventing infections?: No Annual Assessments Date Next Due Annual Assessment Dates Next Due: Date of Next Flu Assessment 06/20/23 Date of Next Suicide Risk Assessment 06/20/23 Date of Next Abuse Assessment 06/20/23 Flu Vaccine-Yearly Date of Next Flu Assessment: 06/20/23 Annual Influenza Vaccine: No Suicide Risk Assessment- Yearly Date of Next Suicide Risk Assessment: 06/20/23 Have you had little interest or pleasure in last 2 weeks?: Not At All Been feeling down, depressed, or hopeless over last 2 weeks?: Not At All Have you had Suicidal thoughts?: Not At All Total Score: 0 Patient score 3 or greater or had suicidal thoughts?: No Abuse-Yearly Date of Next Abuse Assessment: 06/20/23 Do you observe any indication of self neglect?: No Any signs of caregiver neglect?: No Are you depressed?: No Do you wish to harm yourself or anyone else?: No Dictated By: Nikunj Gómez MD Signed By: Signed Date/Time: 06/24/22 1312 DD/ 1517 Sandra Rowan DO [address] [place] [address], [address], [facility] 07/01/2024 08:39:15 Procedures Surgical History Date Name Laterality Status Provider Name and Address Organization Details Recorded Time dissection of lymph node completed Kathy Davis [facility] 09/17/2024 09:39:26 operation on cervix completed Nuzhat Quiros [facility] 06/06/2024 18:17:23 repair of colon completed Nuzhat Xie [facility] 06/06/2024 18:18:55 Imaging Results None recorded. Procedure Notes None recorded. Medical Equipment None Reported. Allergies No known drug allergies Medications Name Sig Start Date Stop Date Status Note LastModified by Organization Details LastModified Time amoxicill in 500 mg capsule take 1 capsule BY MOUTH EVERY 8 HOURS UNTIL GONE 06/12 completed Not Available Not Available Not Available methocarb iwona 500 mg tablet TAKE 1/2 TABLET BY MOUTH EVERY 4 HOURS NEEDED FOR spasm 12/24 completed Not Available Not Available Not Available metoprolo l tartrate 100 mg tablet 09/25 completed Not Available Not Available Not Available hydrocodo ne 5 mg-acetam inophen 325 mg tablet TAKE 1 TABLET BY MOUTH EVERY 8 HOURS NEEDED FOR PAIN MAX OF THREE PER DAY 06/06 completed Not Available Not Available Not Available sucralfat e 1 gram tablet TAKE 1 TABLET BY MOUTH THREE TIMES DAILY BEFORE MEALS for 7 days 01/07 completed Not Available Not Available Not Available phenazopy ridine 200 mg tablet TAKE 1 TABLET BY MOUTH THREE TIMES DAILY NEEDED FOR TWO DAYS FOR PAIN OR DISCOMFO RT active Not Available Not Available No t Available ondansetr on HCl 4 mg tablet TAKE 1 TO 2 TABLETS BY MOUTH EVERY 6 HOURS as needed for MILD TO MODERATE NAUSEA 12/30 completed Not Available Not Available Not Available amoxicill in 500 mg tablet TAKE 1 TABLET BY MOUTH TWICE DAILY 01/07 completed Not Available Not Available Not Available Nexium 20 mg capsule,d elayed release pedro for stomach 01/07 completed Recorded 10/05/19 23 10:34AM by Sandra Rowan DO, Office Visit; Refill Quantity : 90; Capsule; Not Available Not Available Not Available lorazepam 0.5 mg tablet 2024 active Not Available Not Available Not Avai lable dicyclomi ne 20 mg tablet TAKE 1 TABLET BY MOUTH FOUR TIMES DAILY NEEDED FOR abdomina l cramping 06/25 completed Not Available Not Available Not Available pantopraz ole 40 mg tablet,de layed release TAKE 1 TABLET BY MOUTH EVERY DAY ON empty stomach 01/07 completed Not Available Not Available Not Available buspirone 10 mg tablet TAKE 1 TABLET BY MOUTH TWICE DAILY NEEDED FOR anxiety or stress active Not Available Not Available No t Available metoprolo l tartrate 50 mg tablet TAKE 1 TABLET BY MOUTH EVERY DAY FOR BLOOD PRESSURE 06/06 completed Not Available Not Available Not Available gabapenti n 300 mg capsule take 1 capsule BY MOUTH THREE TIMES DAILY FOR pain 12/24 completed Not Available Not Available Not Available simethico ne 125 mg chewable tablet take as directed FOR colon prep 06/25 completed Not Available Not Available Not Available furosemid e 20 mg tablet TAKE 1 TABLET BY MOUTH DAILY 12/24 completed Not Available Not Available Not Available gabapenti n 100 mg capsule take 1 capsule BY MOUTH THREE TIMES DAILY NEEDED FOR PAIN 09/25 completed Not Available Not Available Not Available estradiol 0.5 mg tablet TAKE 1 TABLET BY MOUTH EVERY DAY 01/07 completed Not Available Not Available Not Available estradiol 0.01% (0.1 mg/gram) vaginal cream APPLY 1-2 TIMES PER WEEK 01/07 completed Not Available Not Available Not Available ketoconaz ole 2 % topical cream 09/25 completed Not Available Not Available Not Available fluticaso ne propionat e 50 mcg/actua tion nasal spray,[employer] USE 2 SPRAYS IN EACH NOSTRIL TWICE DAILY active Not Available Not Available No t Available sertralin e 50 mg tablet Take 1 tablet every day by oral route for 90 days, for mood. 06/06 completed Not Available Not Available Not Available dicyclomi ne 10 mg capsule TAKE ONE CAPSULE (10mg) BY MOUTH FOUR TIMES DAILY NEEDED FOR abdomina l cramping 09/25 completed Not Available Not Available Not Available amoxicill in 875 mg-potass ium clavulana te 125 mg tablet TAKE 1 TABLET BY MOUTH EVERY TWELVE HOURS FOR 10 DAYS 06/25 completed Not Available Not Available Not Available oxycodone 5 mg tablet TAKE 1 TABLET BY MOUTH EVERY 8 HOURS NEEDED FOR PAIN 12/24 completed Not Available Not Available Not Available escitalop clari 10 mg tablet TAKE 1 TABLET BY MOUTH EVERY DAY FOR mood active Not Available Not Available No t Available cyclobenz aprine 5 mg tablet 09/25 completed Not Available Not Available Not Available Prempro 0.45 mg-1.5 mg tablet TAKE 1 TABLET BY MOUTH EVERY DAY active Not Available Not Available No t Available metoprolo l tartrate 25 mg tablet take 1/2 tablet BY MOUTH TWICE DAILY 12/24 completed Not Available Not Available Not Available nitrofura ntoin monohydra te/macroc rystals 100 mg capsule TAKE 1 CAPSULE BY MOUTH EVERY 12 HOURS FOR 5 DAYS FOR INFECTIO N. THIS MEDICATI ON IS AN ANTIBIOT IC. TAKE IT EXACTLY DIRECTED . YOU MUST FINISH THE ENTIRE COURSE OF MEDICATI ON. 06/12 completed Not Available Not Available Not Available metoprolo l tartrate two times daily for blood pressure 01/07 completed Recorded 10/05/19 23 10:33AM by Sandra Rowan DO, Office Visit; Refill Quantity : 60; Tablet; Not Available Not Available Not Available ketoconaz ole three times daily, as needed 01/07 completed Recorded 06/22/20 22 10:35AM by Diana Strange, Office Visit; Refill Quantity : 30; Gram; Not Available Not Available Not Available FeroSul 325 mg (65 mg iron) tablet TAKE 1 TABLET BY MOUTH EVERY DAY 06/06 completed Not Available Not Available Not Available GaviLyte- N 420 gram oral solution mix accordin g TO directio ns. drink ONE-HALF THE evening before procedur e and remainin g ONE-HALF THE morning of procedur e 06/25 completed Not Available Not Available Not Available Gavilyte- C 240 gram-22.7 2 gram-6.72 gram-5.84 gram oral solution FOLLOWIN G INSTRUCT IONS PER GI OFfICE 01/07 completed Not Available Not Available Not Available potassium chloride ER 20 mEq tablet,ex tended release TAKE 1 TABLET BY MOUTH DAILY 12/24 completed Not Available Not Available Not Available Flonase Allergy Relief active Not Available Not Available Not Available Veozah 45 mg tablet TAKE 1 TABLET BY MOUTH EVERY DAY 09/25 completed Hold for now Not Available Not Available Not Available tirzepati de (weight loss) 2.5 mg/0.5 mL subcutane ous pen injector Inject by subcutan eous route. active Not Available Not Available No t Available Vitals Date Recorded Body height Body mass index (BMI) Body weight Oxygen saturation Heart rate Respiratory rate Systolic And Diastolic Provider Name and Address Organization Details Last Updated DateTime 5 172.72 cm 29.6 kg/m2 02848.5 1 g 97 % 104 /min 20 /min 132/84 mm[Hg] Kathy Davis [facility] 02/18/202 5 09:35:01 Date Recorded Body height Body mass index (BMI) Body weight Respiratory rate Oxygen saturation Heart rate Systolic And Diastolic Provider Name and Address Organization Details Last Updated DateTime 5 172.72 cm 30.2 kg/m2 71661.0 9 g 20 /min 96 % 100 /min 130/86 mm[Hg] Kathy Davis [facility] 5 08:44:51 Date Recorded Body height Body mass index (BMI) Body weight Oxygen saturation Heart rate Respiratory rate Body temperature Systolic And Diastolic Provider Name and Address Organization Details Last Updated DateTime 5 172.72 cm 29.6 kg/m2 00184.5 1 g 99 % 88 /min 20 /min 95 [degF] 122/90 mm[Hg] Nuzhat Ishaan [facility] 5 17:39:15 Date Recorded Body height Body mass index (BMI) Body weight Oxygen saturation Heart rate Respiratory rate Systolic And Diastolic Provider Name and Address Organization Details Last Updated DateTime 5 172.72 cm 30.5 kg/m2 18482.2 7 g 99 % 96 /min 18 /min 142/88 mm[Hg] GEETA MESFIN [facility] 5 10:31:44 Date Recorded Body height Body mass index (BMI) Body weight Oxygen saturation Heart rate Respiratory rate Systolic And Diastolic Provider Name and Address Organization Details Last Updated DateTime 4 172.72 cm 30.3 kg/m2 03920.8 8 g 99 % 99 /min 18 /min 118/60 mm[Hg] Kathy Davis [facility] 4 11:18:27 Social History Question Answer Notes LastModified by Organizat ion Details LastModified Time Tobacco Smoking Status Never [facility] 06/06[facility]24 18:16:50 What Is Your Level Of Caffeine Consumption? Moderate Information not available 09/25/2024 What Was The Date Of Your Most Recent Tobacco Screening? 12/24/2024 [email or web address] Information not available 12/24/2024 Sex: Unknown Functional Status Question Answer Note LastModified by Organizat ion Details LastModified Time Do you use any illicit or recreational drugs? No [email or web address] Information not available 06/06/2024 Do you or have you ever used any other forms of tobacco or nicotine? No [email or web address] Information not available 09/25/2024 What is your level of alcohol consumption? Occasional Information not available 06/06/2024 Do you or have you ever used any nicotine-free cigarettes, vape, or chewing tobacco? No [email or web address] Information not available 09/25/2024 Mental Status None recorded. Family History Relationship Description Onset Age of this Age Resolved Age Notes LastModified by Organization Details LastModified Time Mother Heart disease [email or web address] Not available 2024 08:42:51 Medical History No medical history recorded. Gynecological HistoryNo gynecological history recorded. Obstetrics History GPAL:G 0 P 0 0 0 0 Immunizations Vaccine Type Date Status Note Provider Nam e and Address Organization Details Recorded Time TST-PPD intradermal 3 completed Not Available [facility] 02/25/2023 02:50:43 TST-PPD intradermal 5 completed Not Available [facility] 02/25/2023 02:50:43 TST-PPD intradermal 7 completed Not Available [facility] 02/25/2023 02:50:43 TST-PPD intradermal 4 completed Not Available [facility] 02/25/2023 02:50:43 TST-PPD intradermal 2 completed Not Available [facility] 02/25/2023 02:50:43 Influenza, split virus, trivalent, preservative 8 completed Not Available [facility] 02/25/2023 02:50:43 Influenza, split virus, trivalent, preservative 3 completed Not Available [facility] 02/25/2023 02:50:43 MMR 8 completed Kathy mackenzie [facility] 09/17/2024 09:37:46 MMR 2 completed Kathy Davis null, [facility] 09/17/2024 09:37:47 COVID-19 vaccine, vector-nr, rS-Ad26, PF, 0.5 mL 1 completed Kathy Davis null, [facility] 09/17/2024 09:37:47 Tdap 1 completed Kathy Davis null, [facility] 09/17/2024 09:37:47 Hep B, unspecified formulation 9 completed Kathy Davis null, [facility] 09/17/2024 09:37:47 Hep B, unspecified formulation 9 completed Kathy Davis null, [facility] 09/17/2024 09:37:47 Hep B, unspecified formulation 9 completed Kathy Davis null, [facility] 09/17/2024 09:37:47 polio, unspecified formulation 7 completed Kathy Davis null, [facility] 09/17/2024 09:37:47 polio, unspecified formulation 2 completed Kathy Davis null, [facility] 09/17/2024 09:37:47 polio, unspecified formulation 7 completed Kathy Davis null, [facility] 09/17/2024 09:37:47 polio, unspecified formulation 7 completed Kathy Davis null, [facility] 09/17/2024 09:37:47 DTaP, unspecified formulation 7 completed Kathy Davis null, [facility] 09/17/2024 09:37:47 DTaP, unspecified formulation 2 completed Kathy Davis null, [facility] 09/17/2024 09:37:47 DTaP, unspecified formulation 7 completed Kathy Davis null, [facility] 09/17/2024 09:37:47 DTaP, unspecified formulation 8 completed Kathy Davis null, [facility] 09/17/2024 09:37:47 DTaP, unspecified formulation 7 completed Kathy Davis null, [facility] 09/17/2024 09:37:47 Past Encounters Encounter ID Performer Location Encounter Start Date Encounter Closed Date Diagnosis/Indication Diagnosis SNOMED-CT Code Diagnosis ICD10 Code Diagnosis IMO Codes Diagnosis Note [id number] LETA SMITH PA-C [facility] ([facility]) [address] [place] [address] 06/13/2023 10:47:18 06/13/2023 12:15:40 Abdominal pain 27495695 R10.9 Gastroesop hageal reflux disease 425647998 K21.9 mild bland diet. avoid spicey, greasy foods and caffinated beverages. [id number] Sandra Rowan DO [facility] ([facility]) [address] [place] [address] 01/01/2024 15:11:56 01/01/2024 17:28:30 Dysuria 15836500 R30.0 Chronic diarrhea 0273843 09 K52.9 Unclear etiology. Possibly secondary to radiation treatments for her uterine cancer 1 to 2 years ago. We will check stool studies, blood work on thyroid, liver function kidney function, we will check electrolyt es and check for anemia due to her lightheade dness, dizziness, weakness. Patient is to monitor her diet closely. We will check for other etiologies including celiac disease and alpha gal. I reviewed records [facility] CT scan of the abdomen and pelvis on 11/13/2023 which showed no acute processes and a CBC from 11/01/2023 which was normal without anemia. [id number] Sandra Rowan DO [facility] ([facility]) [address] [place] [address] 01/02/2024 14:45:12 01/03/2024 10:54:26 Iron deficiency anemia 79315864 D50.9 [id number] Sandra Rowan DO [facility] ([facility]) [address] [place] [address] 01/08/2024 15:22:55 01/08/2024 16:29:10 Hematochezia 463783964 K92.1 Iron defic iency anemia 25911511 D50.9 due to lower GI hemorrhage as below. s/pt 2 units PRBCs last week. will repeat hgb today. counseled Lower gastrointestinal hemorrhage 33398199 K92.2 likely 2/2 radiation for treatment of uterine cancer in 2021. [place] will repeat cbc today. counseled Essential hypertension 64301969 I10 hx of, started with PIH, but remained after delivery.w ill hold off on metoprolol . for now due to severe anemia and upcoming colonoscop y in light of lower BP. monitor bid. f/u 3-4 wks. Generalize d anxiety disorder 35840827 F41.1 worsening. will restart sertraline after colonoscop y this week. counseledf /u 3-4 wks. [id number] Sandra Rowan DO [facility] ([facility]) [address] [place] [address] 01/31/2024 15:18:52 01/31/2024 17:04:19 Iron deficiency anemia 53131026 D50.9 01/31/24- reviewed and discussed recent lab, Hgb 8.7. Planning repeat Colonoscop y after she has healed. Continues Iron infusions, last one scheduled for 02/02/24. Counseled if she is feeling bad again to let us know, we will draw lab and check her counts again. F/u with me in one month. Radiation proctitis 0822 [address]231 K62.7 Repeat Colonoscop y planned for February, not scheduled yet, giving her time to heal. Has been told damage is low enough if the removed it, she would need permanent colostomy. Continue following with Oncology. [id number] Sandra Rowan DO [facility] ([facility]) [address] [place] [address] 01/29/2024 16:23:53 01/30/2024 10:30:52 Iron deficiency anemia 82573899 D50.9 due to lower GI hemorrhage as below. s/pt 2 units PRBCs last week. will repeat hgb today. counseled [id number] Michael Almaguer MD [facility] ([facility]) [address] [place] [phone] 06/06/2024 18:08:27 06/10/2024 10:52:28 Acute sinusitis 63139648 J01.90 Likely bacterial sinusitis based on exam and history. discussed supportive care including OTC meds and sinus rinses. we will start abx. [id number] Sandra Rowan DO [facility] ([facility]) [address] [place] [address] 06/25/2024 10:36:09 06/25/2024 12:04:31 Anxiety 41089574 F41.9 worsening with results of PET scan as above. concern for recurrance of cervical cancer.cou nseled pt, will start SSRI and prn lorazepam. Pt to start counseling . Proceed with further workup on possible reurrance of cancer, f/u with me in 3-4 wks, sooner with problems. Malignant neoplasm of uterus 465667442 C55 concern for recurrence vs not completely resolved due to CT scan as above, 06/21/24 Will proceed with f/u with oncology and PET scan. She prefers to have PET done by oncology. Her obgyn hospitalist physician oncologist has been Dr. Hightower, she received medical oncology and radiation oncology treatment here at [facility]. STORY: Initially diagnosed by cervical biopsy on 02/17/2022. 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 Her staging MRI and PET/CT were suspicious for pelvic lymph node involvemen t, consistent with FIGO stage IIIC1 disease. On 04/08/2022 she underwent laparoscop ic pelvic lymphadene ctomy and periaortic lymph node dissection with pathology showing no involvemen t in a total of 39 lymph nodes. Thus her final staging was FIGO stage IIA2. She was recommende d to proceed with standard chemoradia tion utilizing weekly cisplatin for chemosensi tization. She began pelvic radiothera py and weekly cisplatin at 40 mg/m IV infusion on 04/18/2022. She completed radiation on 05/25/2022 to a total dose of 5000 cGy administer ed in 25 fractions. She completed a total of 5 weekly cisplatin infusions, the 6th having been omitted as at that point she was very close to completing her radiation treatment. She also completed HDR brachyther apy during her final week of external beam radiation. She did have fairly severe diarrhea during her radiothera py and she also had some cystitis symptoms, but she otherwise tolerated the treatment well. Malignant ascites 211534 001 R18.0 concern for, as above, with findings on CT 06/21/24. Will proceed with PET. 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 Will proceed with PET. and f/u with Oncology [id number] Sandra Rowan DO [facility] ([facility]) [address] [place] [phone] 09/17/2024 09:29:56 09/17/2024 11:20:48 Dyspnea 921208249 R06.00 09/17/24: I have independen tly reviewed and interprete d XR results, d/w patient. Dr. Heidi Rowan: CXR: mild pleural effusion on the left with minimal pneumothor ax. Counseled routine deep breathing, as tolerated, 4-5 times per day take really slow deep breaths, doesn't have incentive spirometer . F/u 1 week for suture recheck, will consider another CXR if needed, f/u path results. 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 prelim pathology: I Reviewed pathology on [facility] with pt, explained no current evidence of malignancy in lymph nodes, but final results are not in yet. There is evidence of fungal growth, but this can take awhile to return, otherwise this is appearing benign. concern for, with findings on CT 06/21/24. [id number] Sandra Rowan DO [facility]) [address] [place] [address] 09/25/2024 08:35:53 09/29/2024 19:02:53 Dyspnea 517185279 R06.00 09/25/24: CXR today. I have independen tly reviewed and interprete d XR results, d/w patient. Dr. Heidi Rowan: worsening pleural effusion in the LLL.Will order incentive spirometer , counseled on use. Will increase Gabapentin , continue Oxycodone PRN, ok to take Ibuprofen TID, Tylenol ES x2 tabs twice daily.09/17: I have independneelam tly reviewed and interprete d XR results, d/w patient. Dr. Heidi Rowan: CXR: mild pleural effusion on the left with minimal pneumothor ax. Counseled routine deep breathing, as tolerated, 4-5 times per day take really slow deep breaths, doesn't have incentive spirometer . F/u 1 week for suture recheck, will consider another CXR if needed, f/u path results. 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 prelim pathology: I Reviewed pathology on [facility] with pt, explained no current evidence of malignancy in lymph nodes, but final results are not in yet. There is evidence of fungal growth, but this can take awhile to return, otherwise this is appearing benign. concern for, with findings on CT 06/21/24. Malignant neoplasm of uterus 014791501 C55 concern for recurrence vs not completely resolved due to CT scan as above, 06/21/24 Will proceed with f/u with oncology and PET scan. She prefers to have PET done by oncology. Her obgyn hospitalist physician oncologist has been Dr. Hightower, she received medical oncology and radiation oncology treatment here at [facility]. STORY: Initially diagnosed by cervical biopsy on 02/17/2022. 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 Her staging MRI and PET/CT were suspicious for pelvic lymph node involvemen t, consistent with FIGO stage IIIC1 disease. On 04/08/2022 she underwent laparoscop ic pelvic lymphadene ctomy and periaortic lymph node dissection with pathology showing no involvemen t in a total of 39 lymph nodes. Thus her final staging was FIGO stage IIA2. She was recommende d to proceed with standard chemoradia tion utilizing weekly cisplatin for chemosensi tization. She began pelvic radiothera py and weekly cisplatin at 40 mg/m IV infusion on 04/18/2022. She completed radiation on 05/25/2022 to a total dose of 5000 cGy administer ed in 25 fractions. She completed a total of 5 weekly cisplatin infusions, the 6th having been omitted as at that point she was very close to completing her radiation treatment. She also completed HDR brachyther apy during her final week of external beam radiation. She did have fairly severe diarrhea during her radiothera py and she also had some cystitis symptoms, but she otherwise tolerated the treatment well. Pleural effusion 7359032 8 J90 left lung, worsening s/p mediastino stomy with lymph node bx. progessing on today's f/u xray. 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 prelim pathology: I Reviewed pathology on [facility] with pt, explained no current evidence of malignancy in lymph nodes, but final results are not in yet. There is evidence of fungal growth, but this can take awhile to return, otherwise this is appearing benign. Vocal cord paralysis 302 605365 J38.00 [id number] 12/24/24: Referral to [facility]. History of malignant neoplasm of cervix 348741633 Z85.[id number] Hightower, Onc, [facility]. [id number] Sandra Rowan DO [facility] ([facility]) [address] [place] [address] 06/12/2025 10:15:06 07/01/2025 12:07:43 Generalized anxiety disorder 93750116 F41.1 06/12/25: Counseled start Buspirone up to BID PRN. Counseled on diagnosis, treatment options including medication s and possible side effects. Restart Escitalopr am. Ok to use Lorazepam as needed, she says she has plenty of these at home, but doesn't like to take them. History of malignant neoplasm of cervix 909081858 Z85.41 [id number] Story: FIGO Stage IIIc1 radiograph ically staged squamous cell carcinoma of cervix. S/p Hysterecto my and Chemothera py. Following with Dr. Hightower [employer] Onc with [facility] Nodule of lung 726893793 R91.7 [id number] 06/12/25: Concern for mets, Onc arranging bx. Essential hypertension 16627940 I10 hx of, started with PIH, but remained after delivery. 06/12/25: Counseled no need to restart Metoprolol at this time, lets work on getting anxiety treated, continue to monitor BP. Health Concerns Section Related Observation LastModified by Organization Detai ls LastModified Time None Recorded Concern Status LastModified by Organization Details LastModified Time None Recorded Advance Directives Directive None Recorded Payers Insurance Date Sequence Insurance Name Policy Number Policy Trevino Covered Member ID Trevino Member ID Guarantor Name 07/01/2025 1 [facility] [id number] Chelsea Vasques [id number] Chelsea Vasques 07/01/2025 2 [employer] [id number] Juan C Caprice [id number] Chelsea Vasques 06/12/2025 3 () Chelsea Vasques [id number] Chelsea Vasques Notes Date Note Type Note Provider Name and Address Organization Details Recorded Time 4 text/html ROS as noted in the HPI pt presents to discuss CT chest/ abd/pelvis that was done on Monday06/21/24 at [facility] in [place] She has a significant PMH ofPoorly differentiated squamous cell carcinoma of the cervix, FIGO stage IIA2, Initially diagnosed by cervical biopsy on 02/17/2022. On 03/10/2022 her exam under anesthesia showed an 8 x 8 cm exophytic mass, and at that point she underwent trachelectomy and debulking of the mass. Her staging MRI and PET/CT were suspicious for pelvic lymph node involvement, consistent with FIGO stage IIIC1 disease. On 04/08/2022 she underwent laparoscopic pelvic lymphadenectomy and periaortic lymph node dissection with pathology showing no involvement in a total of 39 lymph nodes. Thus her final staging was FIGO stage IIA2. She was recommended to proceed with standard chemoradiation utilizing weekly cisplatin for chemosensitization. She reports feeling well with last CT done in january 2024 with no sign of any recurrance of cancer. 06/24/2024 3:23 AM CSTIMPRESSION: Please see below.Exam: CT CHEST ABDOMEN PELVIS W CONTDate/Time of Exam: 06/21/2024 11:33 AMReason For Exam: Cervical cancer, monitor;routine cancer surveillanceDiagnosis: History of cervical cancer; Routine cancer follow-up visitTechnique: CT of the chest, abdomen, and pelvis was performedfollowing the administration of intravenous contrast.Contrast:IOPAMIDOL 61 % INTRAVENOUS SOLUTION (MULTI-DOSE BULK PACK) Given:100mL WITHOUT ORAL CONTRAST.Findings:Compariso n made to CT abdomen pelvis 01/22/2024, CT abdomen pelvis from08/14/2020, PET/CT from 09/02/2023.CHEST:The heart size is normal without pericardial effusion. The thoracicaorta is nonaneurysmal. Main pulmonary artery is normal in caliber.Tracheobronchial unremarkable. Thyroid unremarkable. Mild refluxesophagitis.Developme nt of a new enlarged AP window lymph node (series 6 image 83)measuring 1.2 x 2.0 cm, previously 0.6 x 1.6 cm. Development of a newenlarged left hilar lymph node (series 6 image 106) 1.8 x 2.2 cm,previously 0.5 x 0.9 cm. No enlarged right hilar or axillary lymphnodes.Chronic pulmonary nodule within the lingula (series 6 image 149) 0.6 x0.8 cm unchanged dating back to 03/15/2022 PET/CT withouthypermetabolism supporting benign etiology. No new pulmonary nodulesto suggest lung metastasis.No pleural fluid collection or pneumothorax.The soft tissues of chest wall demonstrates no acute findings.ABDOMEN/PELVIS:Mil d hepatic steatosis. No concerning hepatic lesions. Gallbladder andbiliary system is unremarkable. Portal venous system iswell-opacified. Pancreas unremarkable. Spleen is unremarkable. Adrenalglands unremarkable.Bilateral kidneys normal in size with external pelvis bilaterallywithout hydronephrosis. There is left intrarenal calculus measuring 4mmThe distention with diffuse mild mural thickening of the urinarybladder favoring post radiation cystitis.There is a known history of cervical carcinoma, this heterogeneousappearance of the uterus and the cervix without new or enlarging massis identified.Right adnexa unremarkable. The left ovary is located laterally withinthe left paracolic gutter with the left gonadal vasculature coursingto this structure with adjacent surgical clips. Development of aphysiologic cyst in left ovary measuring 1.4 x 2.0 cmIncrease in now moderate volume of ascites within the pelvis appearingestion progressive increase in volume volume dating back to11/13/2023 examination. No evidence of loculation. No peritoneal orserosal nodularity.Aorta and IVC unremarkable. There are no pathologically enlarged lymphnodes in the abdomen or pelvis.The stomach, duodenal sweep, small and large bowel loops normal incaliber without obstruction. Diffuse mild thickening of rectosigmoidcolon again noted which represent postradiation proctocolitis.Appendix appears normal.Body wall demonstrates no acute findings.No concerning osseous lesions.IMPRESSION:1. Possible disease progression; Development of enlarged AP windowand left hilar lymph nodes which are indeterminate, these could bereactive or neoplastic. Progressive increase in now moderate volumeascites in the pelvis which could be reactive or represent peritonealcarcinomatosis. Otherwise no evidence of metastatic disease.Correlation with PET/CT and/or soft tissue sampling of thoracic lymphnodes recommended. If there is adequate fluid, correlation withdiagnostic paracentesis could be attempted.2. Wall thickening of the urinary bladder represent postradiationcystitis. Mild postradiation proctocolitis again noted.3. Left ovary is located laterally within the left paracolic gutterwith development of associated physiologic cyst.4. Nonobstructive left intrarenal calculus.5. Pulmonary nodule within the lingula with long-term stabilitysupporting benign etiology. No new pulmonary nodules. Sandra Rowan, DO [address] [place] [address], [phone], [facility], ..C. 07/01/2024 08:49:56 5 text/html ROS as noted in the HPI Pt presents for surgery f/u after mediastinal lymph node bx. Chief complaint/primary diagnosis:1)Pet avid mediastinal lymphadenopathy2)S/p Robotic assisted left chest exploration with mediastinal and hilar lymph node dissection and biopsy with bronchoscopy on 09/12/24 She had surgery on 09/12/24, at [facility] in [place] with Dr. Christine. No complications noted, she is wanting to discuss the pathology results She had lymph node dissection and had left lung deflated during the procedure. She wonders if she needs CXR. She is having some sob at rest, also with cough.She has pain in the chest with coughing, yawning, deep inspiration.Denies any fever/ chills. Has chronic night sweats, no change. Taking Docusate to help with BM's, denies constipation at this time. She is also wanting her incisions checked, areas of sutures are bothering her, at bra line and on her back.She is taking the Oxycodone TID, it is controlling her pain along with Methocarbamol and Gabapentin. She has pathology on her [facility] portal on her phone, appears to be fungal, benign, however more reports are coming in.She tells me she had a benign bx on 07/26/24 also. Sandra Rowan, DO [address] [place] [address], [phone], [facility], .. 09/17/2024 14:46:50 5 text/html ROS as noted in the HPI Pt presents for 1 week f/u Chief complaint/primary diagnosis:1)Pet avid mediastinal lymphadenopathy2)S/p Robotic assisted left chest exploration with mediastinal and hilar lymph node dissection and biopsy with bronchoscopy on 09/12/24 She had surgery on 09/12/24, at [facility] in [place] with Dr. Christine. No complications notedShe continues with suture at chest tube site. She had a good day yesterday, however today she has increased pain under the left breast at the ribs, 10/10, worse with movement, deep breathing, coughing. Her SOB has improved some.She isn't coughing much, tries to avoid coughing because it causes pain. CXR done on 09/17/24 shows consolidation and atelectasis in the left lower lobe with moderate size left basal pleural effusion. Soft tissue fullness in the AP window.Mediastinal mass or lymphadenopathy not excluded. Taking Docusate to help with BM's, denies constipation at this time. She is taking the Oxycodone occasionally for pain, had stopped it, then took 1/2 tablet this am, wondering what else she can do for pain.Also taking Methocarbamol and Gabapentin. She has records are her portal: TB test negative, no evidence of malignancy.She is scheduled with CT Surgeon next week. She has returned to work this week, doing only as she can tolerate. Sandra Rowan, DO [address] [place] [address], [phone], [facility] 09/26/2024 17:57:37 5 text/html Pt presents for recheck, cancer, Cervical Ca with Mets to bronchopulmonary lymph nodes. Dr. Hightower, her Oncologist, has found some granulomas on her lungs, mentioned in her note referring to Pulm, pt not aware of this. PET Scan with some uptake in the vocal cords, possibly indicating left vocal cord paralysis. She is requesting referral to [facility] to investigate this. Also requesting referral to [facility] for evaluation of her hormones after her Radiation tx. Sandra Rowan DO [address] [place] [address], [phone], [facility] 01/01/2025 21:22:36 5 text/html Generalized Anxiety DisorderReported by PatientHPIFor associated symptoms, patient reportsexcess anxiety,tachycardia,restles sness, andsleep disturbances. For severity, patient reportssevere. For context, patient reportspanic disorder.ROS as noted in the HPI Pt presents to discuss recent imaging. Patient reports she had a CT chest/abd done on 06/06/25. Lymph node in the lower lobe of her left lung has increased in size since the last scan, growing from 11mm to 14mm. Saw oncology on 06/11/25, suggest another biopsy. Was told if they did core biopsy she would see Dr. Frances:Assessment & PlanUnder surveillance for history of cervical cancerCT CAP reviewed, patient has a supleural nodule in the LLL nodule that has slightly increased in size. Dr. Dick Oliveira from radiology and I have discussed that that nodule should undergo CT guided core biopsy. I have reached out to Dr. Frances to review the patient's images to determine if the nodule can be biopsied. Patient has been updated and understands that she may be contacted by my office concerning proceeding with undergoing needle core biopsy.Tumor surveillance precautions reviewed. Patient encouraged to follow-up if she develops vaginal bleeding discharge pain or any concerning symptoms suggestive of disease recurrence.Repeat imaging in 6 months unless clinically indicated to repeat imaging sooner.Follow-up in the office in 6 months. ======= She admits she is anxious.Previously on Escitalopram 10mg, stopped in Aug 2024, has done well without it, until now, with recent concerns regarding her health.She did take Lorazepam last night, wondering if there's something that she can take that won't cause drowsiness while she is at work.BP 144/88 today, was 140's/98 yesterday. Sandra Rowan, DO [address] [place] [address], [phone], [facility], LRhodaLEtienne 06/30/2025 14:16:17 OBGyn Episode No OBEpisode recorded.
--- OUTSIDE RECORDS SUMMARY | 2025-07-23 14:48 | XMS_ITS | Encounter Summary ---
Author Organization [facility] Address [address] [place] [address] Care Team Providers Care Occupational Rehabilitation Aide Name Role Phone Magdiel Culver DO Primary Care Provider [phone] Encounter Details Date Type Department Care Team (Late Contact Info) Description 05/27/2025 Results Follow-Up [facility] ([facility]) Ear, Nose and Throat [address] [place] [phone] Rebeca Purcell, [facility] [address] [place] [address] [address] SINOSCOPY Social History Tobacco Use Types Packs/Day Years [...] Description 12/19/2025 10:50 AM CDT Office Visit [facility] [address] [place] [address] Lucinda Madrigal MD [address] [facility] [place] [address] [place] [address] documented as of this encounter Visit Diagnoses Not on filedocumented in this encounter Care Teams Occupational Rehabilitation Aide Relationship Specialty Start Date End Date Magdiel Culver DO PCP - General Family Practice 03/29/22 documented as of this encounter
--- OUTSIDE RECORDS SUMMARY | 2025-07-23 14:48 | XMS_ITS | Continuity of Care Document ---
Author Organization LASHANDA Trevino [facility] Chun, LVern, [facility] ([facility]) Address [address] [place] [address] Care Team Providers Care Welder Explosion Name Role Phone SANDRA ROWAN Primary Care Provider [phone] Assessment Encounter Date Assessment Date Assessment LastModified by Organization Details LastModified Time 06/12/2025 06/12/2025 Document scribed by Antony Reddy Software Development Specialist. I was present during interview and exam. I have reviewed and agree with above documentation . Dr. Sandra Rowan. Reviewed and discussed Onc visit from 06/11/25. [email or web address] Not available 06/12/2025 10:49:18 Plan of Treatment Reminders Order Date Submit Date Provider Last Modified By Organization Details Last Modified Time Details Appointments None recorded. Lab None recorded. Referral None recorded. Procedures None recorded. Surgeries None recorded. Imaging None recorded. Medication Orders escitalopra m 10 mg tablet [address], [address], 11:36:20 buspirone 10 mg tablet [address], [address], 11:36:20 Patient TargetsNo targets recorded. Patient InstructionsNo instructions recorded. Reason for Referral None Reported. Problems Name Problem SNOMED Code Status Onset Date Resolution Date Notes Provider Name and Address Organization Details Recorded Time High risk for cervical cancer 33738049792 9100 Completed 202109/25/2024 Cervical Cancer; Date: 02/18/20 22; 06/22/20 10:35AM by Diana Strange, Office Visit; Promoted ; acuity set as *; Removal Reason: hx Kathy mackenzie [facility] 5 08:41:39 Chronic diarrhea 069618060 Completed 202309/25/2024 Removal Reason: resolved Kathy mackenzie, [facility] 5 08:41:16 Iron deficien cy anemia 62179448 Active 2023 [facility] 08:41:33 [facility] hyperten bharat 95403911 Active 2023 Kathy mackenzie, [facility] 5 08:41:21 Generali zed anxiety disorder 84763711 Active 2023 Kathy mackenzie, [facility] 5 08:41:26 Lower gastroin testinal hemorrha ge 69626043 Completed 202309/25/2024 Removal Reason: hx Kathy mackenzie, [facility] 5 08:42:16 Hematoch ezia 520503898 Completed 202309/25/2024 Removal Reason: hx Kathy mackenzie, [facility] 5 08:42:10 Radiatio n proctiti s 078687092 Completed 202309/25/2024 Removal Reason: hx Sandra Rowan, DO [address] [place] [address], [phone], [facility] 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 12064851 Active 2023 Kathy mackenzie [facility], AugustLRhodaCRhoda 5 08:41:55 Malignan t ascites 872441821 Completed 202309/25/2024 Removal Reason: hx Kathy Ryan mackenzie [facility], DianaCRhoda 5 08:41:44 Malignan t neoplasm of uterus 363796495 Completed 202309/25/2024 Removal Reason: hx Sandra Rowan, [address], [address], [facility], DianaCRhoda 17:51:43 History of malignan t neoplasm of cervix 733229387 Active 2024 Antony mackenzie [facility], AugustLRhodaCRhoda 18:06:19 Nodule of lung 735708337 Active 2024 Antony mackenzie [facility] L.L.CR[facility]oda 10:48:32 Problem Notes None recorded. Procedures Surgical History Date Name Laterality Status Provider Name and Address Organization Details Recorded Time dissection of lymph node completed Kathy Davis [facility], AugustLRhodaCRhoda 09/17/2024 09:39:26 operation on cervix completed Nuzhat Quiros [facility], AugustL.CRhoda 06/06/2024 18:17:23 repair of colon completed Nuzhat Xie [facility], LRhodaLRhodaCRhoda 06/06/2024 18:18:55 Imaging Results None recorded. Procedure [...] Updated DateTime 5 172.72 cm 30.5 kg/m2 93845.2 7 g 99 % 96 /min 18 /min 142/88 mm[Hg] GEETA TOURE [facility], LRhodaCRhoda 5 10:31:44 Social History Question Answer Notes LastModified by Organizat ion Details LastModified Time Tobacco Smoking Status Never Smoker Nuzhat mackenzie [facility] 06/06/2024 18:16:50 What Is Your Level Of Caffeine Consumption? Moderate [email or web address] Information not available 09/25/2024 What Was The Date Of Your Most Recent Tobacco Screening? 12/24/2024 Information not available 12/24/2024 Sex: Unknown Functional Status Question Answer Note LastModified by Organizat ion Details LastModified Time Do you use any illicit or recreational drugs? No [email or web address] Information not available 06/06/2024 Do you or have you ever used any other forms of tobacco or nicotine? No [email or web address] Information not available 09/25/2024 What is your level of alcohol consumption? Occasional Information not available 06/06/2024 Do you or have you ever used any nicotine-free cigarettes, vape, or chewing tobacco? No [email or web address] Information not available 09/25/2024 Mental Status None recorded. Family History Relationship Description Onset Age of this Age Resolved Age Notes LastModified by Organization Details LastModified Time Mother Heart disease [email or web address] Not available 2024 08:42:51 Medical History No medical history recorded. Gynecological HistoryNo gynecological history recorded. Obstetrics History GPAL:G 0 P 0 0 0 0 Immunizations Vaccine Type Date Status Note Provider Nam e and Address Organization Details Recorded Time TST-PPD intradermal 3 completed Not Available [facility] 02/25/2023 02:50:43 TST-PPD intradermal 5 completed Not Available [facility] 02/25/2023 02:50:43 TST-PPD intradermal 7 completed Not Available [facility] 02/25/2023 02:50:43 TST-PPD intradermal 4 completed Not Available [facility] 02/25/2023 02:50:43 TST-PPD intradermal 2 completed Not Available [facility] 02/25/2023 02:50:43 Influenza, split virus, trivalent, preservative 8 completed Not Available [facility] 02/25/2023 02:50:43 Influenza, split virus, trivalent, preservative 3 completed Not Available [facility] 02/25/2023 02:50:43 MMR 8 completed Kathy Davis null, [facility] 09/17/2024 09:37:46 MMR 2 completed Kathy Davis null, [facility] 09/17/2024 09:37:47 COVID-19 vaccine, vector-nr, rS-Ad26, PF, 0.5 mL 1 completed Akthy Davis null, [facility] 09/17/2024 09:37:47 Tdap 1 completed Kathy Davis null, [facility] 09/17/2024 09:37:47 Hep B, unspecified formulation 9 completed Kathy Davis null, [facility] 09/17/2024 09:37:47 Hep B, unspecified formulation 9 completed Kathy Davis null, [facility] 09/17/2024 09:37:47 Hep B, unspecified formulation 9 completed Kathy Davis null, [facility] 09/17/2024 09:37:47 polio, unspecified formulation 7 completed Kathy Davis null, [facility] 09/17/2024 09:37:47 polio, unspecified formulation 2 completed Kathy Davis null, [facility] 09/17/2024 09:37:47 polio, unspecified formulation 7 completed Kathy Davis null, [facility] 09/17/2024 09:37:47 polio, unspecified formulation 7 completed Kathy Davis null, [facility] 09/17/2024 09:37:47 DTaP, unspecified formulation 7 completed Kathy Davis null, [facility] 09/17/2024 09:37:47 DTaP, unspecified formulation 2 completed Kathy Davis null, [facility] 09/17/2024 09:37:47 DTaP, unspecified formulation 7 completed Kathy Davis null, [facility] 09/17/2024 09:37:47 DTaP, unspecified formulation 8 completed Kathy Davis null, [facility] 09/17/2024 09:37:47 DTaP, unspecified formulation 7 completed Kathy Davis null, [facility] 09/17/2024 09:37:47 Past Encounters Encounter ID Performer Location Encounter Start Date Encounter Closed Date Diagnosis/Indication Diagnosis SNOMED-CT Code Diagnosis ICD10 Code Diagnosis IMO Codes Diagnosis Note [id number] Sandra Rowan DO [facility] ([facility]) [address] [place] [address] 06/12/2025 10:15:06 07/01/2025 12:07:43 Generalized anxiety disorder 41865808 F41.1 06/12/25: Counseled start Buspirone up to BID PRN. Counseled on diagnosis, treatment options including medication s and possible side effects. Restart Escitalopr am. Ok to use Lorazepam as needed, she says she has plenty of these at home, but doesn't like to take them. 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 S/p Hysterecto my and Chemothera py. Following with Dr. Hightower [employer] Onc with [facility] Nodule of lung 354526772 R91.2 [id number] 06/12/25: Concern for mets, Onc arranging bx. Essential hypertension 45838075 I10 hx of, started with PIH, but remained after delivery. 06/12/25: Counseled no need to restart Metoprolol at this time, lets work on getting anxiety treated, continue to monitor BP. Health Concerns Section Related Observation LastModified by Organization Detai ls LastModified Time None Recorded Concern Status LastModified by Organization Details LastModified Time None Recorded Payers Encounter Date Sequence Insurance Name Policy Number Policy Trevino Covered Member ID Trevino Member ID Guarantor Name 06/12/2025 1 [facility] [id number] Chelsea Vasques [id number] Chelsea Gastelum aCprice 06/12/2025 2 [id number]) [id number] Juan CMadison [id number] Chelsea Vasques Notes Date Note Type Note Provider Name and Address Organization Details Recorded Time 06/12/2025 text/html Generalized Anxi ety DisorderReported by PatientHPIFor associated symptoms, patient reportsexcess anxiety,tachycardia,re stlessness, andsleep disturbances. For severity, patient reportssevere. For [...] sooner.Follow-up in the office in 6 months. She admits she is anxious.Previously on Escitalopram 10mg, stopped in Aug 2024, has done well without it, until now, with recent concerns regarding her health.She did take Lorazepam last night, wondering if there's something that she can take that won't cause drowsiness while she is at work.BP 144/88 today, was 140's/98 yesterday. Sandra Rowan, DO [address] [place] [address], [phone], [facility], Naresh 06/30/2025 14:16:17 OBGyn Episode No OBEpisode recorded.
--- NOTE | 2025-07-23 14:54 | CTR_ITS ---
PROCEDURE INFORMATION: Exam: CT Abdomen And Pelvis Without Contrast Exam date and time: 07/23/2025 3:36 PM Age: 40 years old Clinical indication: Pain; Other: Flank; Additional info: Left back/flank pain, n/v TECHNIQUE: Imaging protocol: Computed tomography of the abdomen and pelvis without contrast. Axial, coronal and sagittal reformatted images were created and reviewed. Radiation optimization: All CT scans at this facility use at least one of these dose optimization techniques: automated exposure control; mA and/or kV adjustment per patient size (includes targeted exams where dose is matched to clinical indication); or iterative reconstruction. COMPARISON: MR pelvis wo con* [id number] 03/15/2022 11:09 AM RADIATION DOSE METRICS: Total DLP (mGy-cm): 589.5 FINDINGS: Diaphragm: Small hiatal hernia. Liver: Unremarkable. Gallbladder and biliary ducts: No radiodense gallstones. No biliary ductal dilatation. Pancreas: Unremarkable. Spleen: Unremarkable. Adrenal glands: Normal. No mass. Kidneys and ureters: No mass. No radiodense calculi. No hydronephrosis. Stomach and bowel: No bowel wall thickening. No obstruction. No pneumatosis. Appendix: Normal. Intraperitoneal space: Trace nonspecific free pelvic fluid, likely physiologic. No organized fluid collection. No free air. Vasculature: Unremarkable. No aneurysm. Lymph nodes: No pathologically enlarged lymph nodes. Urinary bladder: Mild circumferential urinary bladder wall thickening, likely secondary to underdistention. Reproductive: Mild left-sided hydroureteronephrosis and perinephric/periureteral edema, secondary to a 5 mm left UVJ calculus (axial image 198 and coronal image 87). Bones/joints: No acute osseous abnormality. Soft tissues: Tiny, fat containing umbilical hernia. CT/CT kidney stone [id number] IMPRESSION: 1. Mild left-sided hydroureteronephrosis and perinephric/periureteral edema, secondary to a 5 mm left UVJ calculus. 2. Additional findings, as above.
[2025-07-23 15:04] LABS: Hematocrit 40.9 % (36-47); Hemoglobin 13.50 g/dL (11.27-16.99); Mean Corpuscular HGB Conc 33.0 g/dL (30-55); Mean Corpuscular Hemoglobin 27.9 pg (27-33); Mean Corpuscular Volume 84.5 fl (85-98); Nucleated Red Blood Cells % 0 %; Platelet Count 328 10^3/cmm (157-399); Red Blood Count 4.84 10^6/uL (3.85-5.65); White Blood Count 12.63 10^3/uL (3.29-11.43)
[2025-07-23] MEDS: HYDROmorphone 0.5 MG/0.5 ML INJ 1 MG IVP (15:05)
--- NOTE | 2025-07-23 15:05 | ED_ITS ---
HPI - Female Genitourinary 2 General: Chief complaint: Urogenital-Female Stated complaint: NV / mid back pain down to pelvis Time Seen by Provider: 07/23/25 14:46 Source: patient Mode of arrival: ambulatory Limitations: no limitations History of Present Illness: Patient is a 40-year-old female with past medical history of cervical cancer presenting to the emergency department complaining of sudden onset left back and flank pain beginning 30 minutes prior to arrival. Denies history of kidney stone, but she expresses concern over this. Notes nausea and 1 episode of vomiting. Denies any urinary issues such as bleeding or dysuria. No fevers or chills. She is noted to be pacing on the room appearing in pain at this time. No history of previous kidney stones, her vitals are stable and she is nontoxic- appearing at this time. MD elicited complaint: back pain and flank pain Onset (ago): minute(s) (30) Severity: severe Associated symptoms: Reports nausea; Deny abdominal pain or headache(s) Related Data Home Medications ?Medication ?Instructions ?Recorded ?Confirmed loperamide 2 mg capsule 2 mg PO DAILY PRN 05/09/22 1 08/20/21 phenazopyridine 95 mg tablet 95 mg PO BID PRN 05/09/22 06/20/22 Previous Rx's ?Medication ?Instructions ?Recorded ferrous sulfate 325 mg (65 mg 325 mg PO DAILY #30 tabs 07/12/22 iron) tablet hydrocodone 5 mg-acetaminophen 325 1 tab PO Q8H PRN pa in #15 tabs 07/23/25 mg tablet ketorolac 10 mg tablet 10 mg PO Q8H PRN pain 5 days #15 07/23/25 tabs ondansetron 4 mg disintegrating 4 mg PO TID PRN nausea and 07/23/25 tablet vomiting #30 tabs Allergies Allergy/AdvReac Type Severity Reaction Status Date / Time No Known Allergies Allergy Verified 07/23/25 14:51 Review of Systems 2 General: Reports: 10 or more systems reviewed and unremarkable except in HPI and below Const: Denies: fever(s), chills, change in appetite, change in weight or diaphoresis ENMT: Denies: throat pain or hoarseness Card: Denies: chest pain, palpitations or lightheadedness Resp: Denies: dyspnea, productive cough or wheezing GI: Reports: nausea and vomiting; Denies: abdominal pain, diarrhea, constipation, bloating, change in stool character or hematochezia : Reports: flank pain; Denies: difficulty voiding, dysuria, urinary frequency, urinary urgency or hematuria Musc: Reports: back pain; Denies: neck pain Skin/Breast: Denies: rash or new lesions Neuro: Denies: headache(s) or dizziness PFSH ED 2 PFSH: Medical History Iron deficiency anemia Cervical cancer Chronic anxiety Hypertension Surgical History History of lymph node biopsy (04/08/22) Laparoscopic pelvic lymphadenectomy and periaortic lymph node dissection History of cervical biopsy (02/17/22) Status post trachelectomy Distal trachelectomy with debulking of cervical mass History of cystoscopy (03/10/22) Exam of bladder and rectum, core of tumor and cut blood supply to cervical tumor @ [place], [place] Family History Grandmother Family history of thyroid problem Maternal Hypertension Maternal Lung disease Grandfather Family history of thyroid problem Maternal Hypertension Maternal Hyperlipidemia Maternal Mother Hypertension CAD (coronary artery disease) AFIB Denies family history of Colon cancer Ovarian cancer Diabetes Clotting disorder Heart disease Psychiatric illness Chronic kidney disease (CKD) Breast cancer Suicide Anesthesia complication Bleeding disorder Cancer Uterine cancer Stroke Social History Smoking and tobacco/nicotine status: never used tobacco/nicotine Alcohol intake: never Substance/Drug Use: never Physical Exam 2 Const: COMMON NORMALS: patient oriented x3, no limitations, alert and well nourished GENERAL APPEARANCE: cooperative ORIENTATION/CONSCIOUSNESS: Yes awake OTHER: Nontoxic-appearing, pacing around room in acute distress secondary to pain Resp: COMMON NORMALS: normal respiratory effort, No retractions, No use of accessory muscles and clear to auscultation bilaterally AUSCULTATION: clear to auscultation bilaterally, no crackles, no rales, no rhonchi and no wheezes Cardio: COMMON NORMALS: regular rate, regular rhythm, No gallops present (Cardio), No clicks present (Cardio), No murmurs present (Cardio) and No rub (Cardio) RATE: regular rate RHYTHM: regular rhythm GI: COMMON NORMALS: Normal to inspection, nondistended, normoactive bowel sounds present, Soft to palpation, non-tender, No hepatosplenomegaly present and no masses AUSCULTATION: Yes normoactive bowel sounds PALPATION: Yes Soft to palpation, No Guarding due to palpation present (GI), No Rigid due to palpation and Yes No hepatosplenomegaly present RECTAL EXAM: deferred : BLADDER/KIDNEY EXAM: Yes CVA tenderness on the left Back/Pelvis: GENERAL BACK: Yes CVA tenderness Extremity: COMMON NORMALS: normal to inspection and full ROM Neuro: COMMON NORMALS: patient oriented x3, moves all extremities, no focal motor deficits and no sensory deficits noted SENSORIUM/ORIENTATION: Yes alert Psych: COMMON NORMALS: mental status grossly normal, cooperative and speech normal SPEECH: Yes normal speech Skin: COMMON NORMALS: no rashes or lesions noted GENERAL SKIN EXAM: no rashes or lesions noted Course 2 Vital Signs: Vital signs: Vital Signs Temperature 97.8 F 07/23/25 14:44 Pulse Rate 97 07/23/25 14:44 Blood Pressure 169/85 07/23/25 14:44 Pulse Oximetry 100 07/23/25 14:44 Oxygen Delivery Me thod Room Air 07/23/25 14:44 MDM - Female Medical Decision Making Patient presented with sudden onset left-sided back and flank pain, associated with nausea and vomiting. Denied history of kidney stones. Overall nontoxic- appearing her vital stable, past medical history positive for cervical cancer. Did not have any urinary symptoms at my time of examination. Gave urinalysis which was negative for any signs of infection, showed red blood cells consistent with probable kidney stone. And abdomen and pelvis CT without contrast confirmed evidence of a 5 mm stone at the left UVJ with upstream hydroureteronephrosis. Mild leukocytosis likely secondary to a kidney stone, and unremarkable, overall got great improvement after IV Toradol and fluids. Suspect this will pass on its own, will treat outpatient pain medications and nausea medications, she will be referred to outpatient urology and told to return with any fever, severe pain not controlled by p.o. medications, persistent nausea vomiting, or anuria oliguria. Patient agrees with this plan at this time. Lab Data 07/23/25 14:57 07/23/25 14:57 Radiology Impressions Abdomen/Pelvis CT 07/23/25 14:54 IMPRESSION: 1. Mild left-sided hydroureteronephrosis and perinephric/periureteral edema, secondary to a 5 mm left UVJ calculus. 2. Additional findings, as above. Laboratory Results WBC 12.63 10^3/uL (3.29-11.43) H 07/23/25 14:57 RBC 4.84 10^6/uL (3.85-5.65) 07/23/25 14:57 Hgb 13.50 g/dL (11.27-16.99) 07/23/25 14:57 Hct 40.9 % (36-47) 07/23/25 14:57 MCV 84.5 fl (85-98) L 07/23/25 14:57 MCH 27.9 pg (27-33) 07/23/25 14:57 MCHC 33.0 g/dL (30-55) 07/23/25 14:57 RDW 13.6 % (12.1-15.1) 07/23/25 14:57 Plt Count 328 10^3/cmm (157-399) 07/23/25 14:57 MPV 10.8 fL (7.4-10.4) H 07/23/25 14:57 Neut % (Auto) 79.7 % 07/23/25 14:57 Lymph % (Auto) 14.7 % 07/23/25 14:57 [place] % (Auto) 4.7 % 07/23/25 14:57 Eos % (Auto) 0.3 % 07/23/25 14:57 Baso % (Auto) 0.4 % 07/23/25 14:57 Neut # (Auto) 10.07 10^3/uL (1.8-7.7) H 07/23/25 14:57 Lymph # (Auto) 1.9 10^3/uL (0.8-4.8) 07/23/25 14:57 [place] # (Auto) 0.6 10^3/uL (0.2-0.9) 07/23/25 14:57 Eos # (Auto) 0.0 10^3/uL (0.0-0.8) 07/23/25 14:57 Baso # (Auto) 0.1 10^3/uL (0.0-0.1) 07/23/25 14:57 Nucleated RBC % (auto) 0 % 07/23/25 14:57 Nucleated RBCs # 0.0 /100WBC 07/23/25 14:57 Sodium 140 mmol/L (136-145) 07/23/25 14:57 Potassium 3.4 mmol/L (3.5-5.1) L 07/23/25 14:57 Chloride 101 mmol/L (98-107) 07/23/25 14:57 Carbon Dioxide 25 mmol/L (22-29) 07/23/25 14:57 Anion Gap 17.4 (5-19) 07/23/25 14:57 BUN 16 mg/dL (6-20) 07/23/25 14:57 Creatinine 1.0 mg/dL (0.5-0.9) H 07/23/25 14:57 GFR Calculation 61.7 mL/min (90-130) L 07/23/25 14:57 Glucose 97 mg/dL (65-115) 07/23/25 14:57 Calculated Osmolality 291 mOsm/kg (285-295) 07/23/25 14:57 Calcium 9.7 mg/dL (8.5-10.5) 07/23/25 14:57 Total Bilirubin 0.3 mg/dL (0.15-1.2) 07/23/25 14:57 AST 12 U/L (0-32) 07/23/25 14:57 ALT 8 U/L (0-33) 07/23/25 14:57 Alkaline Phosphatase 66 U/L (35-105) 07/23/25 14:57 Total Protein 7.4 g/dL (6.6-8.7) 07/23/25 14:57 Albumin 4.6 g/dL (3.5-5.2) 07/23/25 14:57 Globulin 2.8 g/dL (1.3-4.6) 07/23/25 14:57 HCG, Qual Negative (Negative) 07/23/25 14:57 Urine Color Yellow (Yellow) 07/23/25 16:11 Urine Appearance Clear (CLEAR) 07/23/25 16:11 Urine pH 6.5 (5-7) 07/23/25 16:11 Ur Specific [place] 1.014 (1.005-1.030) 07/23/25 16:11 Urine Protein Negative (Negative) 07/23/25 16:11 Urine Glucose (UA) Negative (Normal) 07/23/25 16:11 Urine Ketones 1+ (Negative) H 07/23/25 16:11 Urine Blood 2+ (Negative) A 07/23/25 16:11 Urine Nitrate Negative (Negative) 07/23/25 16:11 Urine Bilirubin Negative (Negative) 07/23/25 16:11 Urine Urobilinogen 1.0 mg/dL (Negative) 07/23/25 16:11 Ur Leukocyte Esterase Trace (Negative) A 07/23/25 16:11 Urine RBC 11-20 /hpf (0-2) H 07/23/25 16:11 Urine WBC 6-10 /hpf (0-5) 07/23/25 16:11 Ur Squamous Epith Cells 0-5 /hpf (0-5) 07/23/25 16:11 Amorphous Sediment Not Reportable 07/23/25 16:11 Urine Bacteria None seen /hpf (NONE) 07/23/25 16:11 Hyaline Casts 3.71 /lpf 07/23/25 16:11 All radiology interpretation(s) finalized by discharge Discharge Plan Discharge Patient Disposition: Home Clinical Impression: Ureterolithiasis Condition: Stable Prescriptions: New hydrocodone-acetaminophen 5-325 mg tablet 1 tab PO Q8H PRN (Reason: pain) Qty: 15 0RF ketorolac 10 mg tablet 10 mg PO Q8H PRN (Reason: pain) 5 Days Qty: 15 0RF ondansetron 4 mg tablet,disintegrating 4 mg PO TID PRN (Reason: nausea and vomiting) Qty: 30 0RF Discontinued ibuprofen 200 mg tablet 200 mg PO Q6H PRN No Action loperamide 2 mg capsule 2 mg PO DAILY PRN phenazopyridine 95 mg tablet 95 mg PO BID PRN ferrous sulfate 325 mg (65 mg iron) tablet 325 mg PO DAILY Qty: 30 0RF Discharge Orders: Discharge ED (Routine); Ordered 07/23/25 Ordered By: Wiley Damon Referrals: Magdiel Culver DO [Primary Care Provider, Family Practice] Patient Instructions: Opioid Safety, Pain Management, Patient Portal & [place] Instructions Activity Restrictions/Additional Instructions: Discharge Instructions: Kidney Stone (Ureterolithiasis) DIAGNOSIS: You have a kidney stone (5 mm) in your left ureter near your bladder. WHAT TO EXPECT AT HOME: Your pain was well-controlled in the emergency department. You are being sent home with medications to help manage your symptoms while the stone passes naturally. Most stones in your location pass on their own within 1-4 weeks. YOUR MEDICATIONS: Take your medications as prescribed: - Tiff (hydrocodone): For pain relief. Take as directed. Do not drive or operate machinery while taking this medication. - Toradol (ketorolac): For pain and inflammation. Take with food to protect your stomach. - Zofran (ondansetron): For nausea. Take as needed. IMPORTANT HOME CARE INSTRUCTIONS: 1. Drink plenty of fluids - Aim for 8-10 glasses of water daily to help flush the stone through your system. 2. Strain your urine - Use a strainer or coffee filter to catch the stone when it passes. Save the stone in a clean container and bring it to your follow-up appointment for analysis. 3. Watch for the stone - You may see the stone in your urine or feel it pass. Some people don't notice when it passes. RETURN TO THE EMERGENCY DEPARTMENT IMMEDIATELY IF YOU DEVELOP: - Fever over 100.4?F (38?C) or chills - This could indicate infection, which is a medical emergency with a kidney stone - Severe pain that is not controlled by your medications - Persistent nausea and vomiting that prevents you from keeping down fluids or medications - No urination or very little urine output - Blood in urine that is bright red or contains clots FOLLOW-UP CARE: - Schedule an appointment with a urologist within 1-2 weeks for evaluation and to discuss your stone passage progress - Imaging may be needed in 3-4 weeks if the stone has not passed to confirm its location - If the stone has not passed within 4 weeks, you may need a procedure to remove it ACTIVITY: You may resume normal activities as tolerated. Some people find that staying active helps the stone move through the urinary system. DIET: Continue your normal diet. Avoid excessive salt intake. After the stone passes, your doctor may recommend specific dietary changes based on the stone composition. ADDITIONAL INFORMATION: Stones at your location (near the bladder) have approximately a 75-79% chance of passing on their own. The average time for stone passage is about 2-3 weeks, though it can occur sooner or take longer. If you have questions or concerns before your follow-up appointment, contact your urologist or return to the emergency department. Print Language: Ecuadorean Coding Level of Care Code ED [employer] for Juan Ramon Vargas
[2025-07-23] MEDS: ondansetron 2 mg/ML SDV 2 mL 4 MG IVP (15:06)
[2025-07-23 15:19] LABS: HCG, Serum Qual Negative (Negative)
[2025-07-23 15:29] LABS: Alanine Aminotransferase 8 U/L (0-33); Albumin Level 4.6 g/dL (3.5-5.2); Alkaline Phosphatase 66 U/L (35-105); Anion Gap 17.4 (5-19); Aspartate Amino Transferase 12 U/L (0-32); Blood Urea Nitrogen 16 mg/dL (6-20); Calcium 9.7 mg/dL (8.5-10.5); Carbon Dioxide 25 mmol/L (22-29); Chloride 101 mmol/L (98-107); Globulin 2.8 g/dL (1.3-4.6); Glucose 97 mg/dL (65-115); Osmolality Calculated 291 mOsm/kg (285-295); Potassium 3.4 mmol/L (3.5-5.1); Sodium 140 mmol/L (136-145); Total Protein 7.4 g/dL (6.6-8.7)
[2025-07-23 16:18] LABS: Glucose Urine UA Negative (Normal); Nitrate Urine Negative (Negative); Specific Gravity, Urine 1.014 (1.005-1.030)
[2025-07-23 16:23] LABS: Add Urine Microscopic? YES
--- NOTE | 2025-07-23 16:48 | PC.NURSE ---
2 10MG TORADOL TABLETS, 2 4MG ZOFRAN TABLETS, AND 2 5/325MG HYDROCODONE TABLETS GIVEN TO PT TO TAKE HOME DUE TO THE HOLIDAY.
[2025-07-23 16:52] VITALS: BP 132/87; PULSE 66; O2SAT 100
== END 2025-07-23 16:53 | disposition home or self-care (01) ==
PROVIDERS: Emergency Provider Physician Assistant; PCP Electrodiagnostic Medicine
DX: N20.1 Calculus of ureter (principal); I10 Essential (primary) hypertension; Z85.41 Personal history of malignant neoplasm of cervix uteri
CPT/HCPCS: 36415; 74176; 80053; 81001; 84703; 85025; 87086; 96361; 96374; 96375; 99285; J1171; J1885; J2405; J7030; J9999